=== PATIENT | male | born 1945 | race Caucasian/White ===

== ENCOUNTER 2022-10-05 04:57 | Inpatient (IN) ==
[2022-10-05] MEDS ORDERED: SODIUM CHLORIDE 0.9% 1000ML 500 ML IV ONE (05:14)
[2022-10-05] MEDS ORDERED: LABETALOL HCL IV 5 MG/ML 20ML IV STA (05:14)
[2022-10-05] MEDS ORDERED: METOCLOPRAMIDE HCL INJ 5 MG/ML 2 ML VIAL IV ONE (05:14)
[2022-10-05] MEDS ORDERED: diphenhydrAMINE 50 MG/ML VIAL IV STA (05:14)
--- NOTE | 2022-10-05 05:16 | Emergency Department Note ---
Impression & Plan Acute hyponatremia ADMIT ED Provider Note HPI: The patient is a 77-year-old gentleman who presents the emergency department with multiple complaints. Patient states he was diagnosed with COVID-19 one week ago, states that since then he has continued to have symptoms including some nonspecific chest pressure and coughing, patient states she is also had generalized headaches that have been daily during this time. Patient states he finished a course of Paxlovid 2 days ago. On arrival here to the ED the patient is in no acute distress. Patient does mention to me later in the history that he is also having a sensation of incomplete voiding at times. He states he is able to urinate on his own without complete obstruction. He does not have any focal deficits, he is noted to be hypertensive on arrival 216/109 but is otherwise afebrile and saturating well on room air on my initial assessment. ROS: -General: COVID-19 symptoms -Neuro: Headache x1 week *10 point review systems was conducted and is otherwise negative unless stated above *Outpatient medications and allergy history reviewed PE: General: Alert HEENT: Normocephalic, trachea midline Eyes: Extraocular eye movement is intact, no scleral erythema Pulmonary: Clear to auscultation bilaterally, no wheezing Cardio: Regular rate and rhythm GI: Abdomen is soft, nontender : No suprapubic tenderness MSK: No evidence of trauma or malformation of the extremities, no edema Skin: No evidence of rash Neuro: Alert, no focal deficits, equal bilateral training and development rep strength, symmetrical facial movements are appreciated, no drift of the upper extremities or lower extremities with testing against gravity Psychiatric: Cooperative property assessment monitor: - An order was placed for continuous cardiac monitoring - Patient was noted to be in sinus rhythm with a rate of 80 EKG: Rate: 81 Rhythm: Normal sinus rhythm Intervals: QRS 154 ms, otherwise within normal limits ST changes: No ST elevation Time: 0530 Interventions provided in ED: -IV labetalol, IV fluid bolus, IV Reglan, IV Benadryl Medical Decision Making: Patient presented to the emergency department with concern for ongoing COVID-19 symptoms. He recently finished a course of Paxlovid 2 days ago however he continues to feel unwell. States he has had ongoing headaches, generalized weakness, states he has had a harsh cough. IV was established, lab work obtained, patient was placed on property assessment monitor. CT imaging of the head was ordered. Patient was given a dose of IV labetalol for his hypertension in the setting of headache, this did improve his blood pressure to 180/93 CT imaging of the head does not show any evidence of any acute intracranial process. Chest x-ray shows a mild nonspecific coarsening at the bilateral lung bases. Patient was given IV Reglan and IV Benadryl as well as a small IV fluid bolus for his headache. This did improve his headache. Lab work otherwise shows no leukocytosis, stable hemoglobin, critical electrolyte abnormality of sodium of 115 is noted patient tells me he has not had this issue previously. Unclear source for the patient's hyponatremia at this time, he has vague symptoms of weakness and headache although this may be attributable to his recent COVID-19 diagnosis. Given the critical level of his acute hyponatremia he will require admission for further work-up. Urinalysis was obtained and does not show any evidence of infection. COVID-19 testing was obtained and remains positive. [facility] service was consulted for admission and the patient was admitted in stable condition for further care. Diagnosis: 1. Hyponatremia, acute 2. Hypertensive urgency 3. Headache, acute, non-intractable 4. Hypochloremia 5. COVID-19 infection Disposition: Admission Sherman Vu DO Emergency Medicine Past Med/Surg History Social History Smoking Status: Never smoker Feels Safe at Home: Yes Allergies Allergies Allergy/AdvReac Type Severity Reaction Status Date / Time No Known Allergies Allergy Unverified 05/25/12 17:55 Home Meds Home Medications Medication Instructions Recorded Confirmed Pravastatin (Pravachol ) 20 mg PO DAILY #0 tabs 05/25/12 Results & Data (ED) Vital Signs Vital Signs - 24 hr 10/05/22 05:03 10/05/22 04:58 10/05/22 05:13 Temperature 36.4 C L Temperature Source Temporal Artery Scan Pulse Rate 84 75 Pulse Rate [Apical] 76 Pulse Rate from SpO2 Sensor Pulse Rhythm Regular Pulse Rhythm [Apical] Respiratory Rate 18 16 16 Respiratory Effort / Characteristics Non-Labored Spontaneous Non-Labored Spontaneous Respiratory Depth Normal Normal Respiratory Pattern Blood Pressure 216/109 H Blood Pressure [Right Arm] 221/108 H Blood Pressure Mean 144 Blood Pressure Mean [Right Arm] 145 Blood Pressure Position [Right Arm] Pulse Oximetry 98 96 96 Oxygen Delivery Method Room Air Room Air Room Air Sepsis Recent Fever Within 48 Hours No Sepsis New/Unexplained Change in Mental Status No Sepsis Action Taken by Nursing No Action Required 10/05/22 05:47 10/05/22 06:03 10/05/22 06:12 Temperature Temperature Source Pulse Rate 73 74 78 Pulse Rate [Apical] Pulse Rate from SpO2 Sensor 74 Pulse Rhythm Pulse Rhythm [Apical] Respiratory Rate 18 20 Respiratory Effort / Characteristics Respiratory Depth Respiratory Pattern Blood Pressure 187/117 H 188/107 H 189/107 H Blood Pressure [Right Arm] Blood Pressure Mean 140 134 134 Blood Pressure Mean [Right Arm] Blood Pressure Position [Right Arm] Pulse Oximetry 97 Oxygen Delivery Method Sepsis Recent Fever Within 48 Hours Sepsis New/Unexplained Change in Mental Status Sepsis Action Taken by Nursing 10/05/22 06:30 10/05/22 06:30 10/05/22 07:00 Temperature Temperature Source Pulse Rate 70 Pulse Rate [Apical] 77 Pulse Rate from SpO2 Sensor 67 Pulse Rhythm Pulse Rhythm [Apical] Regular Respiratory Rate 17 17 Respiratory Effort / Characteristics Non-Labored Spontaneous Respiratory Depth Normal Respiratory Pattern Regular Blood Pressure 180/93 H 180/93 H Blood Pressure [Right Arm] 176/97 H Blood Pressure Mean 122 122 Blood Pressure Mean [Right Arm] 123 Blood Pressure Position [Right Arm] Semi-fowlers Pulse Oximetry 98 98 Oxygen Delivery Method Room Air Sepsis Recent Fever Within 48 Hours Sepsis New/Unexplained Change in Mental Status Sepsis Action Taken by Nursing Laboratory Data Result diagrams: 10/05/22 05:27 10/05/22 05:27 Lab Results 10/05/22 10/05/22 10/05/22 Range/Units 05:27 05:27 06:11 WBC 7.41 (4.8-10.8) K/ul RBC 5.35 (4.63-6.08) M/uL Hgb 15.5 (14.0-18.0) g/dl Hct 41.4 (40.1-51.0) % MCV 77.4 L (80.0-100.0) fL MCH 29.0 (25.0-34.0) pg MCHC 37.4 H (32.0-36.0) g/dL RDW Std Deviation 32.3 L (36.4-46.3) fL RDW Coeff of Tamir 11.7 (11.5-14.5) % Plt Count 319 (130-400) K/uL MPV 9.4 (9.4-12.4) fL Immature Gran % (Auto) 0.3 % Neut % (Auto) 69.5 % Lymph % (Auto) 16.3 % Gaines % (Auto) 12.7 % Eos % (Auto) 0.8 % Baso % (Auto) 0.4 % Neut # (Auto) 5.15 (1.4-6.5) K/uL Lymph # (Auto) 1.21 (1.2-3.4) K/uL Gaines # (Auto) 0.94 H (0.24-0.82) K/uL Eos # (Auto) 0.06 (0-0.50) K/uL Baso # (Auto) 0.03 (0-0.2) K/uL Immature Gran # (Auto) 0.02 (0.00-0.02) K/uL Sodium 115 L* (136-145) mmol/L Potassium 4.0 (3.5-5.1) mmol/L Chloride 81 L (98-107) mmol/L Carbon Dioxide 25 (21-32) mmol/L Anion Gap 9 (3-11) BUN 7 (6-23) mg/dl Creatinine 0.66 (0.6-1.4) mg/dl Est Cr Clr Drug Dosing 108.8 ml/min Est GFR ( Amer) 108.8 ml/min Est GFR (Non-Af Amer) 93.9 ml/min BUN/Creatinine Ratio 10.6 (10-20) Glucose 150 H (70-99(Fasting)) mg/dl Calcium 9.2 (8.5-10.1) mg/dl Total Bilirubin 0.6 (0.2-1.0) mg/dl AST 17 (13-39) U/L ALT 12 (7-52) U/L Alkaline Phosphatase 62 (34-104) U/L Troponin I High Sens 10.9 (0-20) pg/ml Total Protein 8.1 (6.0-8.3) gm/dl Albumin 4.5 (3.4-5.0) gm/dl Globulin 3.6 (2.5-4.0) gm/dl Albumin/Globulin Ratio 1.3 (0.9-2) Lipase 21 (11-82) U/L Urine Color Yellow Urine Appearance Clear (Clear) Urine pH 7.5 (4.5-7.5) Ur Specific Norton 1.013 (1.000-1.030) Urine Protein 1+ H (Negative) Urine Glucose (UA) Negative (Negative) Urine Ketones Trace H (Negative) Urine Blood Negative (Negative) Urine Nitrite Negative (Negative) Urine Bilirubin Negative (Negative) Urine Urobilinogen Negative (Negative) Ur Leukocyte Esterase Negative (Negative) Urine WBC (Auto) 1-5 (0-5) /hpf Urine RBC (Auto) 0-4 (0-4) /hpf U Hyaline Cast (Auto) 0 (0-5) /lpf U Epithel Cells (Auto) 10-20 H (0-5) /lpf Urine Bacteria (Auto) Negative (Negative) SARS-CoV-2, RNA, NAAT (NEGATIVE) 10/05/22 Range/Units 06:55 WBC (4.8-10.8) K/ul RBC (4.63-6.08) M/uL Hgb (14.0-18.0) g/dl Hct (40.1-51.0) % MCV (80.0-100.0) fL MCH (25.0-34.0) pg MCHC (32.0-36.0) g/dL RDW Std Deviation (36.4-46.3) fL RDW Coeff of Tamir (11.5-14.5) % Plt Count (130-400) K/uL MPV (9.4-12.4) fL Immature Gran % (Auto) % Neut % (Auto) % Lymph % (Auto) % Gaines % (Auto) % Eos % (Auto) % Baso % (Auto) % Neut # (Auto) (1.4-6.5) K/uL Lymph # (Auto) (1.2-3.4) K/uL Gaines # (Auto) (0.24-0.82) K/uL Eos # (Auto) (0-0.50) K/uL Baso # (Auto) (0-0.2) K/uL Immature Gran # (Auto) (0.00-0.02) K/uL Sodium (136-145) mmol/L Potassium (3.5-5.1) mmol/L Chloride (98-107) mmol/L Carbon Dioxide (21-32) mmol/L Anion Gap (3-11) BUN (6-23) mg/dl Creatinine (0.6-1.4) mg/dl Est Cr Clr Drug Dosing ml/min Est GFR ( Amer) ml/min Est GFR (Non-Af Amer) ml/min BUN/Creatinine Ratio (10-20) Glucose (70-99(Fasting)) mg/dl Calcium (8.5-10.1) mg/dl Total Bilirubin (0.2-1.0) mg/dl AST (13-39) U/L ALT (7-52) U/L Alkaline Phosphatase (34-104) U/L Troponin I High Sens (0-20) pg/ml Total Protein (6.0-8.3) gm/dl Albumin (3.4-5.0) gm/dl Globulin (2.5-4.0) gm/dl Albumin/Globulin Ratio (0.9-2) Lipase (11-82) U/L Urine Color Urine Appearance (Clear) Urine pH (4.5-7.5) Ur Specific Norton (1.000-1.030) Urine Protein (Negative) Urine Glucose (UA) (Negative) Urine Ketones (Negative) Urine Blood (Negative) Urine Nitrite (Negative) Urine Bilirubin (Negative) Urine Urobilinogen (Negative) Ur Leukocyte Esterase (Negative) Urine WBC (Auto) (0-5) /hpf Urine RBC (Auto) (0-4) /hpf U Hyaline Cast (Auto) (0-5) /lpf U Epithel Cells (Auto) (0-5) /lpf Urine Bacteria (Auto) (Negative) SARS-CoV-2, RNA, NAAT POSITIVE A* (NEGATIVE) Administered Medications Discontinued Medications Diphenhydramine HCl (Diphenhydramine 50 Mg/Ml Vial) 25 mg IV NOW STA Stop: 10/05/22 05:15 Last Admin: 10/05/22 05:30 Dose: 25 mg Documented By: ROBYN Sodium Chloride (Nss 1000ml) 500 mls @ 999 mls/hr IV .Q31M ONE Stop: 10/05/22 05:44 Last Infusion: 10/05/22 06:03 Dose: 0 mls/hr Documented By: Admin: 10/05/22 05:37 Dose: 999 mls/hr Documented By: ROBYN Labetalol HCl (Labetalol Hcl Iv 5 Mg/Ml 20ml) 10 mg IV NOW STA Stop: 10/05/22 05:15 Last Admin: 10/05/22 05:30 Dose: 10 mg Documented By: ROBYN Co-signed By: SHANE Metoclopramide HCl (Metoclopramide Hcl Inj 5 Mg/Ml 2 Ml Vial) 5 mg IV ONE ONE Stop: 10/05/22 05:15 Last Admin: 10/05/22 05:31 Dose: 5 mg Documented By: ROBYN Imaging Data Radiologist's Impression: Chest X-Ray 10/05/22 05:13 XR chest 1V portable HISTORY: 77 years-old Male Chest pain, nonspecific acute chest pain COMPARISON: None TECHNIQUE: AP view of the chest FINDINGS: Study is limited secondary to positioning. The cardiac silhouette is upper limits of normal in size. Mild interstitial coarsening of the lung bases. No pneumothorax, pleural effusion, airspace consolidation or overt pulmonary edema. Mild left shoulder rotator cuff calcific tendinosis. Degenerative changes of the shoulders and spine. IMPRESSION: Mild nonspecific interstitial coarsening of the lung bases. Findings may represent atelectasis versus a mild nonspecific pneumonitis ACT 112: Negative or not required by law. The above report was generated using voice recognition software. It may contain grammatical, syntax or spelling errors. Electronically signed by: Rajesh Ragland M.D. 10/05/2022 6:[address] 10/05/22 05:13 CT head/brain wo con CLINICAL HISTORY: 77 years-old Male with FINCH. Acute headache TECHNIQUE: Multiple axial CT images of the head were obtained without contrast. A dose lowering technique was utilized adhering to the principles of ALARA. CT DOSE: 704.87 mGy.cm COMPARISON: None. FINDINGS: No acute intracranial hemorrhage, midline shift, intracranial mass, hydrocephalus, territorial ischemia or abnormal extra-axial collection. Involutional changes with ventriculomegaly, likely on an ex vacuo basis. There is asymmetric dilation of the posterior horn left lateral ventricle of unknown chronicity. The temporal horns are symmetric and decompressed. White matter hypodensities are suggestive of chronic microvascular ischemic disease. Cerebral vascular calcifications. The calvarium is intact. Mild mucosal thickening of the paranasal sinuses. The mastoid air cells are generally clear. Unremarkable soft tissues. Prior bilateral lens repair. IMPRESSION: No acute intracranial abnormality. ACT 112: Negative or not required by law. The above report was generated using voice recognition software. It may contain grammatical, syntax or spelling errors. Electronically signed by: Rajesh Ragland M.D. 10/05/2022 6:56 AM Discharge Plan Visit Data Chief Complaint: Illness Stated Complaint: COVID ED Provider: Sherman Vu Discharge Problem: Acute hyponatremia Patient Disposition: Admitted As Inpatient Forms Stand Alone Forms: [facility] Prescriptions Prescriptions: No Action Pravastatin (Pravachol ) 20 MG tablet 20 mg PO DAILY Qty: 0 Referrals Referrals: PCP,NO [Physician] -
[2022-10-05 06:06] LABS: Basophils # (auto) 0.03 K/uL (0-0.2); Basophils % (auto) 0.4 %; Eosinophils # (auto) 0.06 K/uL (0-0.50); Eosinophils % (auto) 0.8 %; Hematocrit (blood only) 41.4 % (40.1-51.0); Hemoglobin 15.5 g/dl (14.0-18.0); Immature Granulocytes # (auto) 0.02 K/uL (0.00-0.02); Immature Granulocytes % (auto) 0.3 %; Lymphocytes # (auto) 1.21 K/uL (1.2-3.4); Lymphocytes % (auto) 16.3 %; Mean Corpuscular Hgb Conc 37.4 g/dL (32.0-36.0); Mean Corpuscular Volume 77.4 fL (80.0-100.0); Mean Platelet Volume 9.4 fL (9.4-12.4); Monocytes # (auto) 0.94 K/uL (0.24-0.82); Monocytes % (auto) 12.7 %; Neutrophils # (auto) 5.15 K/uL (1.4-6.5); Neutrophils % (auto) 69.5 %; Platelet Count 319 K/uL (130-400); RDW Coefficient of Variation 11.7 % (11.5-14.5); RDW Standard Deviation 32.3 fL (36.4-46.3); Red Blood Count 5.35 M/uL (4.63-6.08); White Blood Count 7.41 K/ul (4.8-10.8)
[2022-10-05 06:35] LABS: Troponin I High Sensitivity 10.9 pg/ml (0-20)
[2022-10-05 06:42] LABS: Albumin Globulin Ratio 1.3 (0.9-2); Albumin Level 4.5 gm/dl (3.4-5.0); BUN Creatinine Ratio 10.6 (10-20); Bilirubin,Total 0.6 mg/dl (0.2-1.0); Calcium 9.2 mg/dl (8.5-10.1); Creatinine Clr Calc Pharmacy 108.8 ml/min; Est GFR (African American) 108.8 ml/min; Est GFR (Non-African American) 93.9 ml/min; Globulin 3.6 gm/dl (2.5-4.0); Total Protein 8.1 gm/dl (6.0-8.3)
--- NOTE | 2022-10-05 06:43 | XRay Report ---
XR chest 1V portable HISTORY: 77 years-old Male Chest pain, nonspecific acute chest pain COMPARISON: None TECHNIQUE: AP view of the chest FINDINGS: Study is limited secondary to positioning. The cardiac silhouette is upper limits of normal in size. Mild interstitial coarsening of the lung bases. No pneumothorax, pleural effusion, airspace consolida tion or overt pulmonary edema. Mild left shoulder rotator cuff calcific tendinosis. Degenerative dudley ges of the shoulders and spine. IMPRESSION: Mild nonspecific interstitial coarsening of the lung bases. Findings may represent atelec tasis versus a mild nonspecific pneumonitis ACT 112: Negative or not required by law. The above report was generated using voice recognition software. It may contain grammatical, syntax o r spelling errors. Electronically signed by: Rajesh Ragland M.D. 10/05/2022 6:41 AM
--- NOTE | 2022-10-05 06:58 | CT Scan Report ---
CT head/brain wo con CLINICAL HISTORY: 77 years-old Male with FINCH. Acute headache TECHNIQUE: Multiple axial CT images of the head were obtained without contrast. A dose lowering tech nique was utilized adhering to the principles of ALARA. CT DOSE: 704.87 mGy.cm COMPARISON: None. FINDINGS: No acute intracranial hemorrhage, midline shift, intracranial mass, hydrocephalus, territorial ischem ia or abnormal extra-axial collection. Involutional changes with ventriculomegaly, likely on an ex va cuo basis. There is asymmetric dilation of the posterior horn left lateral ventricle of unknown chron icity. The temporal horns are symmetric and decompressed. White matter hypodensities are suggestive o f chronic microvascular ischemic disease. Cerebral vascular calcifications. The calvarium is intact. Mild mucosal thickening of the paranasal sinuses. The mastoid air cells are generally clear. Unremarkable soft tissues. Prior bilateral lens repair. IMPRESSION: No acute intracranial abnormality. ACT 112: Negative or not required by law. The above report was generated using voice recognition software. It may contain grammatical, syntax o r spelling errors. Electronically signed by: Rajesh Ragland M.D. 10/05/2022 6:56 AM
[2022-10-05 07:14] LABS: Appearance Urine Clear (Clear); Bacteria Urine Automated Negative (Negative); Bilirubin Urine Negative (Negative); Blood Urine Negative (Negative); Cast Urine Automated 0 /lpf (0-5); Color Urine Yellow; Glucose Urine UA Negative (Negative); Ketones Urine Trace (Negative); Leukocyte Esterase Urine Negative (Negative); Nitrite Urine Negative (Negative); RBC Urine Automated 0-4 /hpf (0-4); Specific Gravity Urine 1.013 (1.000-1.030); Urobilinogen Urine Negative (Negative); pH Urine 7.5 (4.5-7.5)
[2022-10-05 07:18] LABS: Protein Urine 1+ (Negative)
--- NOTE | 2022-10-05 08:50 | History & Physical Report ---
Date of Service October 05, 2022 Assessment & Plan (1) Acute hyponatremia: Plan: This is a 77yo M with a PMH of HTN and HLD who presents with intermittent nausea, vomiting and cough was found to have hyponatremia. Dx with COVID 1 week ago and completed Paxlovid course 2 days ago Ongoing intermittent nausea and vomiting, poor appetite and mental "fogginess" per A&O x4, denies seizures Initial sodium of 115 with serum osm, urine osm, urine sodium pending Received 500ml NSS in ED Will trend BMP every 4 hours TSH and procalcitonin pending Discussed case with Dr. Woods of nephrology who will evaluate Discussed with Dr. Pedersen, who accepts for ICU (2) COVID-19: Plan: Symptomatic for 10 days, completed course of Paxil did 2 days ago. Flutter valve, incentive spirometry, Mucinex twice daily. Saturating at 99% on room air (3) HTN (hypertension): Plan: BP elevated at 178/92. Given 10 mg IV labetalol in ED, just given missed a.m. dose of losartan. Continue to monitor (4) HLD (hyperlipidemia): Plan: Continue statin DVT Ppx: SQ lovenox Code status: FULL PCP: Rai Dispo: Admitted to ICU Patient seen in collaboration with Dr. Carrion. Please see addendum. History of Present Illness Chief Complaint: N/V, confusion Primary Care Provider: Davon Atwood MD This is a 77yo M with a PMH of HTN and HLD who presents with intermittent nausea, vomiting and cough. Was traveling in [place] 10 days ago and developed productive cough, subjective fever chills. He was diagnosed with COVID when he returned to the [facility] 1 week ago and was prescribed a 5 day course of Paxlovid, which he completed 2 days ago. Cough has persisted but is now dry. Has had nausea and vomiting intermittently since return home. Has had intermittent headaches. Appetite has been poor for past 10 days. Has been drinking approximately 50 oz of water a day. No diarrhea. Patient denies confusion or seizures. mentions that patient has seemed more confused and foggy the past few days. A&Ox4 during interview. Denies lightheadedness, chest pain, palpitations, abdominal pain, dysuria, diarrhea or constipation. Allergies Allergy/AdvReac Type Severity Reaction Status Date / Time No Known Allergies Allergy Unverified 05/25/12 17:55 Home Medications Medication Instructions Recorded Confirmed Type atorvastatin 40 mg tablet 40 mg PO DAILY 10/05/22 10/05/22 History losartan 50 mg tablet 50 mg PO DAILY 10/05/22 10/05/22 History Past Med/Surg History Medical History HLD (hyperlipidemia) HTN (hypertension) Surgical History H/O hernia repair Family History Other Colorectal cancer Heart disease Social History Smoking Status: Former smoker Second Hand Exposure: No; Do You Dip or Chew Tobacco: No; Tobacco Cessation Education Requested by Patient: No Hx Alcohol Use: Yes Alcohol type: wine Alcohol Intake Frequency: Monthly or Less Hx Substance Use: No Preferred Language: Croatian Communication Ability: Effective Manual Tester Required: No Beliefs That Will Affect Care: None Current Living Situation: Spouse Other Information That Helps Us Care for You: No Feels Safe at Home: Yes Safety Concerns: Feels Safe At This Time Assistive Devices: None Review of Systems Review of Systems: At least ten systems reviewed and negative except as noted in the HPI. Physical Exam Physical Exam: Please see Dr. Carrion's addendum for physical exam. Results & Data Results & Data ([facility]) Vital Signs (Past 12 Hours) Vital Signs Temp Pulse Pulse Resp BP BP BP 10/05/22 08:08 75 18 186/99 H 10/05/22 07:49 36.8 C 10/05/22 07:00 77 17 176/97 H 10/05/22 06:30 70 17 180/93 H 10/05/22 06:30 180/93 H 10/05/22 06:12 78 189/107 H 10/05/22 06:03 74 20 188/107 H 10/05/22 05:47 73 18 187/117 H 10/05/22 05:13 75 16 10/05/22 04:58 76 16 221/108 H 10/05/22 05:03 36.4 C L 84 18 216/109 H Pulse Ox O2 Del Method 10/05/22 08:08 97 Room Air 10/05/22 07:49 10/05/22 07:00 98 Room Air 10/05/22 06:30 98 10/05/22 06:30 10/05/22 06:12 10/05/22 06:03 97 10/05/22 05:47 10/05/22 05:13 96 Room Air 10/05/22 04:58 96 Room Air 10/05/22 05:03 98 Room Air Laboratory Results Short CBC 10/05/22 Range/Units 05:27 WBC 7.41 (4.8-10.8) K/ul Hgb 15.5 (14.0-18.0) g/dl Hct 41.4 (40.1-51.0) % Plt Count 319 (130-400) K/uL BMP 10/05/22 05:27 Sodium 115 L* Potassium 4.0 Chloride 81 L Carbon Dioxide 25 BUN 7 Creatinine 0.66 Glucose 150 H Calcium 9.2 Liver Function 10/05/22 Range/Units 05:27 Total Bilirubin 0.6 (0.2-1.0) mg/dl AST 17 (13-39) U/L ALT 12 (7-52) U/L Alkaline Phosphatase 62 (34-104) U/L Albumin 4.5 (3.4-5.0) gm/dl Urine 10/05/22 Range/Units 06:11 Urine Color Yellow Urine Appearance Clear (Clear) Urine pH 7.5 (4.5-7.5) Ur Specific [place] 1.013 (1.000-1.030) Urine Protein 1+ H (Negative) Urine Glucose (UA) Negative (Negative) Diagnostic Findings Chest X-Ray 10/05/22 05:13 XR chest 1V portable HISTORY: 77 years-old Male Chest pain, nonspecific acute chest pain COMPARISON: None TECHNIQUE: AP view of the chest FINDINGS: Study is limited secondary to positioning. The cardiac silhouette is upper limits of normal in size. Mild interstitial coarsening of the lung bases. No pneumothorax, pleural effusion, airspace consolidation or overt pulmonary edema. Mild left shoulder rotator cuff calcific tendinosis. Degenerative changes of the shoulders and spine. IMPRESSION: Mild nonspecific interstitial coarsening of the lung bases. Findings may represent atelectasis versus a mild nonspecific pneumonitis ACT 112: Negative or not required by law. The above report was generated using voice recognition software. It may contain grammatical, syntax or spelling errors. Electronically signed by: Rajesh Ragland M.D. 10/05/2022 6:[address] 10/05/22 05:13 CT head/brain wo con CLINICAL HISTORY: 77 years-old Male with FINCH. Acute headache TECHNIQUE: Multiple axial CT images of the head were obtained without contrast. A dose lowering technique was utilized adhering to the principles of ALARA. CT DOSE: 704.87 mGy.cm COMPARISON: None. FINDINGS: No acute intracranial hemorrhage, midline shift, intracranial mass, hydrocephalus, territorial ischemia or abnormal extra-axial collection. Involutional changes with ventriculomegaly, likely on an ex vacuo basis. There is asymmetric dilation of the posterior horn left lateral ventricle of unknown chronicity. The temporal horns are symmetric and decompressed. White matter hypodensities are suggestive of chronic microvascular ischemic disease. Cerebral vascular calcifications. The calvarium is intact. Mild mucosal thickening of the paranasal sinuses. The mastoid air cells are generally clear. Unremarkable soft tissues. Prior bilateral lens repair. IMPRESSION: No acute intracranial abnormality. ACT 112: Negative or not required by law. The above report was generated using voice recognition software. It may contain grammatical, syntax or spelling errors. Electronically signed by: Rajesh Ragland M.D. 10/05/2022 6:56 AM Supervising Physician Co-Signing Physician Notes Patient is a 77-year-old male with history of hypertension, hyperlipidemia and no other significant past medical history presents with history of nausea, vomiting, cough with brownish expectoration since about 7 days duration. He re cently traveled to [place] 10 days ago. He admits to having fever, chills initially which currently resolved. He was diagnosed to have COVID 1 week ago and has completed a course of Paxlovid. Patient's family noted him to be having intermittent confusion. Please review HPI for complete details of presentation. Blood work reviewed. Noted hyponatremia 115, hypochloremia 81, glucose 150, HbA1c 6.1, CRP 1.8, procalcitonin normal. Saturating well on room air. No known seizure-like activity. Oriented during my encounter. Physical Exam: Vitals signs as noted above General Appearance:Moderately built and nourished, no apparent distress Head: normocephalic, Atraumatic Eyes: normal inspection, EOMI Neck: supple, Trachea midline Respiratory/Chest: Decreased breath sounds, CTA, No accessory muscle use Cardiovascular: S1, S2, No murmur Abdomen/GI:Soft, Non tender, Bowel sounds present Extremities/Musculoskeletal:normal inspection, 1+ B/L LE edema Neurologic/Psych:AAOX3, grossly no focal neurological deficits Skin: normal color, warm Acute hyponatremia Likely prerenal secondary to dehydration Will obtain urine, serum osmolality, urine sodium TSH normal Received 5 mg normal saline in ED Closely monitor BMP every 4 hours Consider hypertonic saline Batteryman, account executive ag[employer] consulted Monitor for any seizures COVID-19 infection Recently finished Paxlovid course Saturating well on room air Conservative management for now Hypertensive urgency Continue losartan May need IV antihypertensives if BP remains elevated. I personally reviewed the record. Patient is interviewed and examined at bedside. Patient's care is coordinated with Park Kilpatrick PA-C. Please refer to the documentation above for details of patient's presentation and for discussion of other issues.
--- NOTE | 2022-10-05 09:04 | Electrocardiogram Report ---
Test Reason : Blood Pressure : / mmHG Vent. Rate : 081 BPM Atrial Rate : 081 BPM P-R Int : 180 ms QRS Dur : 154 ms QT Int : 412 ms P-R-T Axes : 052 019 026 degrees QTc Int : 478 ms Normal sinus rhythm Right bundle branch block Abnormal ECG No previous ECGs available Confirmed by Kenneth Louis ([id number]) on 10/05/2022 9:04:21 AM Referred By: REFERRED SELF Confirmed By:Kenneth Louis
[2022-10-05] MEDS ORDERED: ACETAMINOPHEN 500 MG TAB PO STA (09:27)
[2022-10-05] MEDS ORDERED: ONDANSETRON INJ 2 MG/ML 2 ML VIAL IV STA (09:27)
[2022-10-05] MEDS ORDERED: LOSARTAN POTASSIUM 50 MG TAB PO ONE ×3 (09:28→18:12)
[2022-10-05 10:09] LABS: Estimated Average Glucose 128 mg/dl; Hemoglobin A1C 6.1 % (4.5-5.6)
[2022-10-05] MEDS: guaiFENesin 600 MG TABCR PO SCH ×2 (10:34→20:01)
[2022-10-05 11:28] LABS: BUN Creatinine Ratio 10.8 (10-20); Calcium 9.2 mg/dl (8.5-10.1); Creatinine Clr Calc Pharmacy 110.4 ml/min; Est GFR (African American) 109.5 ml/min; Est GFR (Non-African American) 94.5 ml/min; Potassium 4.1 mmol/L (3.5-5.1)
[2022-10-05] MEDS ORDERED: ALBUT/IPRATROP 3MG/0.5MG NEB 3 ML VIAL NEB PRN (11:30)
[2022-10-05] MEDS: ICU Protocol for HYPERglycemia SCH ×3 (13:40→20:07)
[2022-10-05] MEDS: ENOXAPARIN INJ 40 MG/0.4 ML SYR SQ SCH (13:45)
--- NOTE | 2022-10-05 14:46 | Nephrology Consultation ---
Date of Consultation October 05, 2022 Assessment & Plan (1) Hyponatremia: euvolemic hypotonic hyponatremia likely multifactorial ; favor this rather than hypovolemic state >> low solute diet +/- lung issues from covid infection -fluid restrict 1.2L/day -responded to 500 mL NS w/ slight change but urine /serum studies/hx most c/w euvolemia -repeat labs pending >> low threshold for 3% until sNa 120 versus lasix -q4h BMP STAT -maintain eukalemia -goal sNa is 121 for tomorrow AM (2) HTN (hypertension): some situational HTN. continue losartan OP dose; had prn labetalol -avoid thiazides -continue prn labetalol and consideration of hydralazine prn History of Present Illness Reason for Consultation: hyponatremia Requesting Physician: Dr Carrion Attending Physician: Papo Carrion MD History of Present Illness 77 y/o M whom I'm asked to see for hyponatremia was admitted today for same. PMH includes HTN, HL, and recent covid infection. He returned from a photography trip to [place] about 10 days back. 2 fellow travellers developed covid on the trip; the pt tested positive for it on return and is s/p course of paxlovid. during covid, he had fevers, dry cough and n/v. he lost his sense of taste. he had severe frontal sinus pain. he took a few ibuprofen 2 days back but stopped/limited intake b/c worsened GI upset. His fevers stopped but pt has had ongoing n/v, poor po intake (though he's kept up with water intake), also w/ ongoing sinus congestion and N/v. His cough has mostly resolved. he has congestion but no edema. also noting urinary hesitancy. no falls but endorses a staggering gait. his told admitting team his thought process is foggy. Allergies Allergy/AdvReac Type Severity Reaction Status Date / Time No Known Allergies Allergy Unverified 05/25/12 17:55 Home Medications Medication Instructions Recorded Confirmed Type atorvastatin 40 mg tablet 40 mg PO DAILY 10/05/22 10/05/22 History losartan 50 mg tablet 50 mg PO DAILY 10/05/22 10/05/22 History Patient History Medical History HLD (hyperlipidemia) HTN (hypertension) Surgical History H/O hernia repair Family History Other Colorectal cancer Heart disease Social History Smoking Status: Former smoker Second Hand Exposure: No; Do You Dip or Chew Tobacco: No; Tobacco Cessation Education Requested by Patient: No Hx Alcohol Use: Yes Alcohol type: wine Alcohol Intake Frequency: Monthly or Less Hx Substance Use: No Preferred Language: Nepali Communication Ability: Effective Computer Aided Design Technician Required: No Beliefs That Will Affect Care: None Current Living Situation: Spouse Other Information That Helps Us Care for You: No Feels Safe at Home: Yes Safety Concerns: Feels Safe At This Time Assistive Devices: None Review of Systems Review of Systems: All systems reviewed & are unremarkable except as noted in HPI & below Physical Exam Constitutional: well developed, well nourished, average body habitus and cooperative; no acute distress Eyes: EOM intact bilaterally ENMT: Ears: no external ear abnormality Nose: no external nose abnormality Mouth: + dry oral mucous membranes Neck: no nuchal rigidity Respiratory: normal respiratory effort Auscultation: + diminished lung sounds and + crackles (a few scattered fine crackles) Cardiovascular: Rate/Rhythm: regular rate and regular rhythm Extremities: no edema Gastrointestinal (Abdomen): Inspection/Auscultation: normal bowel sounds Percussion/Palpation: abdomen soft; abdomen nontender Musculoskeletal: Extremities: strength 5/5 throughout Skin: no rashes, warm and dry Neurologic: kothari, fluent speech, no tremor Psychiatric: Orientation: alert and oriented x 3 Speech: normal rate/rhythm/volume of speech Insight: good insight Judgement: good judgement Results & Data ([facility]) Vital Signs (Past 12 Hours) Vital Signs Temp Pulse Pulse Resp BP BP BP 10/05/22 14:00 81 16 10/05/22 14:00 188/103 H 10/05/22 13:30 195/100 H 10/05/22 13:30 80 13 10/05/22 13:00 86 20 10/05/22 13:00 187/102 H 10/05/22 12:30 78 18 10/05/22 12:30 193/100 H 10/05/22 12:00 78 16 10/05/22 12:00 193/97 H 10/05/22 11:30 81 15 10/05/22 11:30 190/98 H 10/05/22 14:18 10/05/22 12:00 37.0 C 10/05/22 12:10 37.0 C 76 16 190/98 H 10/05/22 10:58 73 18 183/105 H 10/05/22 10:33 77 18 183/105 H 10/05/22 09:30 69 18 174/115 H 10/05/22 08:48 83 18 178/92 H 10/05/22 08:08 75 18 186/99 H 10/05/22 07:49 36.8 C 10/05/22 07:00 77 17 176/97 H 10/05/22 06:30 70 17 180/93 H 10/05/22 06:30 180/93 H 10/05/22 06:12 78 189/107 H 10/05/22 06:03 74 20 188/107 H 10/05/22 05:47 73 18 187/117 H 10/05/22 05:13 75 16 10/05/22 04:58 76 16 221/108 H 10/05/22 05:03 36.4 C L 84 18 216/109 H Pulse Ox O2 Del Method 10/05/22 14:00 98 10/05/22 14:00 10/05/22 13:30 10/05/22 13:30 97 10/05/22 13:00 94 10/05/22 13:00 10/05/22 12:30 98 10/05/22 12:30 10/05/22 12:00 98 10/05/22 12:00 10/05/22 11:30 98 10/05/22 11:30 10/05/22 14:18 Room Air 10/05/22 12:00 10/05/22 12:10 98 Room Air 10/05/22 10:58 98 Room Air 10/05/22 10:33 98 Room Air 10/05/22 09:30 95 Room Air 10/05/22 08:48 99 Room Air 10/05/22 08:08 97 Room Air 10/05/22 07:49 10/05/22 07:00 98 Room Air 10/05/22 06:30 98 10/05/22 06:30 10/05/22 06:12 10/05/22 06:03 97 10/05/22 05:47 10/05/22 05:13 96 Room Air 10/05/22 04:58 96 Room Air 10/05/22 05:03 98 Room Air Laboratory Results 10/05/22 05:27 Na 115 > 116 K 4 sOsm 246 uOsm 421 Zunilda 87 UACM reviewed
[2022-10-05] MEDS ORDERED: METOPROLOL TARTRATE 1 MG/ML VIAL IV ONE ×2 (14:57→14:59)
[2022-10-05 15:17] LABS: BUN Creatinine Ratio 10.8 (10-20); Calcium 9.2 mg/dl (8.5-10.1); Creatinine Clr Calc Pharmacy 109.7 ml/min; Est GFR (African American) 109.5 ml/min; Est GFR (Non-African American) 94.5 ml/min; Potassium 4.2 mmol/L (3.5-5.1)
[2022-10-05] MEDS ORDERED: ONDANSETRON INJ 2 MG/ML 2 ML VIAL ONE (15:22)
[2022-10-05] MEDS ORDERED: STAT IV STA ×3 (16:00→22:10)
[2022-10-05] MEDS ORDERED: SODIUM CHLORIDE 3 % 150 ML IV ONE ×2 (16:00→19:15)
--- NOTE | 2022-10-05 17:06 | Critical Care Consultation ---
Date of Consultation October 05, 2022 Assessment & Plan (1) Hyponatremia: ICU Assessment and Plans Reason Critically Ill: 77yo Male with PMH HTN HLD came to hospital for COVID related congestion and was admitted for severe hyponatremia. Neuro - [facility] ICU: NEGATIVE Sedation: none Analgesia: none -CT head: No acute intracranial abnormality. Cardiac - HTN -on admit 221/108 -on losartan 50mg daily missed last 2 doses - nephrology consulted continue losartan 50mg may use PRN labetalol avoid thiazides target BP 150-160 HLD -continue atorvastatin Respiratory - no acute concerns GI - Fluid restriction 1.2 L Full Liquid diet RENAL/LYTES - Hyponatremia -Na 115 on admit -euvolemic hypotonic hyponatremia likely multifactorial -received 500ml NSS in ED -nephrology consulted started hypertonic saline, aim for Na 119-120 range q4h BMP avoid salt tabs, urea, thiazide consider lasix - No concerns at this time. ENDO - Prediabetes -A1c 6.1, f/u with PCP HEME - Stable H&H. ID - COVID -ongoing 1 week no fevers currently -isolation precautions -ordered mucinex INTEGUMENTARY - skin clean dry intact LINES/IV ACCESS - PIVs intact. DVT PROPHYLAXIS - Lovenox Thank you for allowing us to be part of this patient's care. Please refer to Dr. Pedersen's documentation for any further recommendations. (2) COVID-19: (3) HLD (hyperlipidemia): (4) HTN (hypertension): Supervising Physician Co-Signing Physician Notes Dr. Parish BUI was resident physician during care of patient. I separately evaluated patient for connors portions of the history and the exam. I was present during the critical portion of medical decision making, and I discussed the case with the resident. I generally agree with the findings and plan. Patient's hyponatremia slowly improving, started on 3% continue close observation. Patient is alert and oriented. Discussed with patient and diagnosis need for treatment and probable course. I have personally spent 40 minutes of critical care time in the direct management of this patient. This is a life/limb threatening event. This includes time spent evaluating patient, direct bedside care, chart review, placing orders, interpretation of diagnostic studies, discussion with consultants, patient, and/or family members regarding treatment decisions, as well as other required patient management activities. This time is exclusive of all separately billable procedures, and teaching time and separate from and in addition to any other critical care service time. History of Present Illness Reason for Consultation: Hyponatremia Requesting Physician: Dr. Pedersen Attending Physician: Papo Carrion MD History of Present Illness 77yo Male with PMH HTN HLD came to hospital for COVID related congestion and was admitted for severe hyponatremia. Patient states over the past week he had COVID, developed congestion sore throat headache mild balance issues and cough. He states his sore throat made it difficult to swallow food sometimes. He denies weakness change in vision SOB or change in appetite. Per his mentation and thought process is not quite at baseline. Patient states he last saw his PCP 6 months ago, BP at that time around systolic 140's. He is on losartan, usually takes regularly however missed his doses the last 2 days. Allergies Allergy/AdvReac Type Severity Reaction Status Date / Time No Known Allergies Allergy Unverified 05/25/12 17:55 Home Medications Medication Instructions Recorded Confirmed Type atorvastatin 40 mg tablet 40 mg PO DAILY 10/05/22 10/05/22 History losartan 50 mg tablet 50 mg PO DAILY 10/05/22 10/05/22 History Patient History Medical History HLD (hyperlipidemia) HTN (hypertension) Surgical History H/O hernia repair Family History Other Colorectal cancer Heart disease Social History Smoking Status: Former smoker Second Hand Exposure: No; Do You Dip or Chew Tobacco: No; Tobacco Cessation Education Requested by Patient: No Hx Alcohol Use: Yes Alcohol type: wine Alcohol Intake Frequency: Monthly or Less Hx Substance Use: No Preferred Language: Moldovan Communication Ability: Effective Medical Payment Poster Required: No Beliefs That Will Affect Care: None Current Living Situation: Spouse Other Information That Helps Us Care for You: No Feels Safe at Home: Yes Safety Concerns: Feels Safe At This Time Assistive Devices: None Review of Systems Review of Systems: All systems reviewed & are unremarkable except as noted in HPI & below Physical Exam Constitutional: well developed, well nourished, cooperative and comfortable Eyes: PERRL, conjunctivae normal, anicteric sclerae ENMT: external ear and nose normal, oropharynx normal Neck: trachea midline, no thyromegaly Respiratory: normal respiratory effort, lungs clear to auscultation Cardiovascular: Rate/Rhythm: regular rate and regular rhythm Extremities: no edema Gastrointestinal (Abdomen): Inspection/Auscultation: abdomen normal to inspection Percussion/Palpation: abdomen soft; abdomen nontender Musculoskeletal: Extremities: strength 5/5 throughout Skin: no rashes, warm and dry Neurologic: CN's II-XI intact bilaterally and awake Coordination: normal [id number] test, normal Romberg test and normal rapid alternating movements Results & Data Results & Data ([facility]) Vital Signs (Past 12 Hours) Vital Signs Temp Pulse Pulse Resp BP BP BP 10/05/22 16:00 75 10/05/22 14:00 81 16 10/05/22 14:00 188/103 H 10/05/22 13:30 195/100 H 10/05/22 13:30 80 13 10/05/22 13:00 86 20 10/05/22 13:00 187/102 H 10/05/22 12:30 78 18 10/05/22 12:30 193/100 H 10/05/22 12:00 78 16 10/05/22 12:00 193/97 H 10/05/22 11:30 81 15 10/05/22 11:30 190/98 H 10/05/22 14:18 10/05/22 14:59 76 203/103 H 10/05/22 12:00 37.0 C 10/05/22 12:10 37.0 C 76 16 190/98 H 10/05/22 10:58 73 18 183/105 H 10/05/22 10:33 77 18 183/105 H 10/05/22 09:30 69 18 174/115 H 10/05/22 08:48 83 18 178/92 H 10/05/22 08:08 75 18 186/99 H 10/05/22 07:49 36.8 C 10/05/22 07:00 77 17 176/97 H 10/05/22 06:30 70 17 180/93 H 10/05/22 06:30 180/93 H 10/05/22 06:12 78 189/107 H 10/05/22 06:03 74 20 188/107 H 10/05/22 05:47 73 18 187/117 H 10/05/22 05:13 75 16 10/05/22 05:03 36.4 C L 84 18 216/109 H Pulse Ox O2 Del Method 10/05/22 16:00 10/05/22 14:00 98 10/05/22 14:00 10/05/22 13:30 10/05/22 13:30 97 10/05/22 13:00 94 10/05/22 13:00 10/05/22 12:30 98 10/05/22 12:30 10/05/22 12:00 98 10/05/22 12:00 10/05/22 11:30 98 10/05/22 11:30 10/05/22 14:18 Room Air 10/05/22 14:59 10/05/22 12:00 10/05/22 12:10 98 Room Air 10/05/22 10:58 98 Room Air 10/05/22 10:33 98 Room Air 10/05/22 09:30 95 Room Air 10/05/22 08:48 99 Room Air 10/05/22 08:08 97 Room Air 10/05/22 07:49 10/05/22 07:00 98 Room Air 10/05/22 06:30 98 10/05/22 06:30 10/05/22 06:12 10/05/22 06:03 97 10/05/22 05:47 10/05/22 05:13 96 Room Air 10/05/22 05:03 98 Room Air Resident Activity Tracking Resident Involvement: Resident Care Provided Care Provided: Adult Hospital Medicine
--- NOTE | 2022-10-05 17:12 | Communication Note ---
Date of Service: October 05, 2022 Afternoon and late am labs reviewed steady critical hyponatremia >150 mL 3% saline x 1 > continue q4h BMP and run these stat -would give another 150 mL 3% saline if needed to get sNa to 119-120 range -thereafter consider lasix, fluid restriction; would avoid salt tabs or urea until bp better controlled HTN urgency -wrote for prn labetalol; continue ARB -recommend SBP target 150-160s -further as per ICU team Q2h neuro checks ordered given HTN and hyponatremia; low threshold for repeat head CT
[2022-10-05 18:51] LABS: BUN Creatinine Ratio 11.9 (10-20); Calcium 8.5 mg/dl (8.5-10.1); Creatinine Clr Calc Pharmacy 120.9 ml/min; Est GFR (Non-African American) 98.3 ml/min
[2022-10-05] MEDS: LABETALOL HCL IV 5 MG/ML 20ML IV PRN ×2 (19:29→23:55)
[2022-10-05 21:54] LABS: BUN Creatinine Ratio 12.1 (10-20); Calcium 8.6 mg/dl (8.5-10.1); Creatinine Clr Calc Pharmacy 108.1 ml/min; Est GFR (African American) 108.8 ml/min; Est GFR (Non-African American) 93.9 ml/min
[2022-10-05] MEDS: SODIUM CHLORIDE 3 % 500 ML IV SCH (22:39)
[2022-10-06 02:39] LABS: Hematocrit (blood only) 37.2 % (40.1-51.0); Hemoglobin 13.8 g/dl (14.0-18.0); Mean Corpuscular Hemoglobin 28.7 pg (25.0-34.0); Mean Corpuscular Hgb Conc 37.1 g/dL (32.0-36.0); Mean Corpuscular Volume 77.3 fL (80.0-100.0); Mean Platelet Volume 9.1 fL (9.4-12.4); Platelet Count 301 K/uL (130-400); RDW Coefficient of Variation 11.7 % (11.5-14.5); RDW Standard Deviation 32.4 fL (36.4-46.3); Red Blood Count 4.81 M/uL (4.63-6.08); White Blood Count 9.18 K/ul (4.8-10.8)
[2022-10-06 03:00] LABS: BUN Creatinine Ratio 12.5 (10-20); Calcium 8.1 mg/dl (8.5-10.1); Creatinine Clr Calc Pharmacy 111.4 ml/min; Est GFR (African American) 110.2 ml/min; Est GFR (Non-African American) 95.1 ml/min; Magnesium 1.6 mg/dl (1.7-2.4); Potassium 4.2 mmol/L (3.5-5.1)
[2022-10-06] MEDS: MAGNESIUM SULFATE / D5W 1 GM/100 ML BAG IV SCH ×3 (03:50→07:52)
[2022-10-06] MEDS: LABETALOL HCL IV 5 MG/ML 20ML IV PRN (04:28)
[2022-10-06] MEDS ORDERED: hydrALAZINE HCL 20 MG/ML VIAL IV STA (05:48)
[2022-10-06] MEDS: SODIUM CHLORIDE 3 % 500 ML IV SCH ×2 (06:35→16:50)
[2022-10-06 06:37] LABS: BUN Creatinine Ratio 10.6 (10-20); Calcium 7.9 mg/dl (8.5-10.1); Creatinine Clr Calc Pharmacy 106.7 ml/min; Est GFR (African American) 108.8 ml/min; Est GFR (Non-African American) 93.9 ml/min
[2022-10-06] MEDS: ATORVASTATIN 40 MG TAB PO SCH (07:53)
[2022-10-06] MEDS: guaiFENesin 600 MG TABCR PO SCH ×2 (07:53→20:40)
[2022-10-06] MEDS: LOSARTAN POTASSIUM 50 MG TAB PO SCH (07:54)
[2022-10-06] MEDS: ICU Protocol for HYPERglycemia SCH ×4 (07:55→21:09)
--- NOTE | 2022-10-06 08:09 | Billing Data ---
Date of Service October 05, 2022 Coding Level of Care Code Critical Care 1st - mins
--- NOTE | 2022-10-06 08:41 | Critical Care Progress Note ---
Date of Service October 06, 2022 Assessment & Plan (1) Hyponatremia: Plan: ICU Assessment and Plans Reason Critically Ill: 77yo Male with PMH HTN HLD came to hospital for COVID related congestion and was admitted for severe hyponatremia. Neuro - [facility] ICU: NEGATIVE Sedation: none Analgesia: none -CT head: No acute intracranial abnormality. Cardiac - HTN: improving - losartan 50mg restarted - daily missed last 2 doses HLD -continue atorvastatin Respiratory - no acute concerns GI - Fluid restriction 1.2 L Full Liquid diet RENAL/LYTES - Hyponatremia -on 3% at 65 mL/hour -continue to trend BMP -advance diet as tolerated - will consider lasix once after next laboratory check - No concerns at this time. ENDO - Prediabetes -A1c 6.1, f/u with PCP HEME - Stable H&H. ID - COVID -ongoing 1 week no fevers currently -isolation precautions -ordered mucinex INTEGUMENTARY - skin clean dry intact LINES/IV ACCESS - PIVs intact. DVT PROPHYLAXIS - Lovenox (2) COVID-19: (3) HLD (hyperlipidemia): (4) HTN (hypertension): Admission and Anticipated Discharge Date Admission Date: October 05, 2022 Results & Data Results & Data ([facility]) Vital Signs (Past 12 Hours) Vital Signs Temp Pulse Resp BP Pulse Ox O2 Del Method 10/06/22 06:00 72 16 175/91 H 97 Room Air 10/06/22 05:30 78 23 187/92 H 98 10/06/22 05:00 80 18 174/97 H 97 Room Air 10/06/22 04:30 78 19 181/94 H 98 10/06/22 04:06 83 16 97 10/06/22 04:00 36.7 C 81 15 187/94 H 96 10/06/22 03:30 76 16 182/98 H 97 Room Air 10/06/22 03:00 72 17 167/96 H 97 10/06/22 02:30 77 16 178/91 H 98 Room Air 10/06/22 02:00 77 19 186/94 H 98 10/06/22 01:30 73 17 185/85 H 97 10/06/22 01:00 70 17 174/89 H 95 10/06/22 00:30 76 16 173/98 H 97 Room Air 10/06/22 00:00 36.8 C 76 18 182/95 H 97 10/05/22 23:30 73 17 195/95 H 99 10/05/22 23:01 86 13 169/137 H 95 10/05/22 22:30 79 19 182/99 H 97 10/05/22 22:00 74 22 170/91 H 98 10/05/22 21:30 75 15 176/87 H 97 10/05/22 21:00 76 17 180/91 H 97 10/06/22 00:00 Room Air 10/06/22 00:00 80 Critical Care Results & Data Vital Signs (Past 12 Hours) Vital Signs Temp Pulse Resp BP Pulse Ox O2 Del Method 10/06/22 06:00 72 16 175/91 H 97 Room Air 10/06/22 05:30 78 23 187/92 H 98 10/06/22 05:00 80 18 174/97 H 97 Room Air 10/06/22 04:30 78 19 181/94 H 98 10/06/22 04:06 83 16 97 10/06/22 04:00 36.7 C 81 15 187/94 H 96 10/06/22 03:30 76 16 182/98 H 97 Room Air 10/06/22 03:00 72 17 167/96 H 97 10/06/22 02:30 77 16 178/91 H 98 Room Air 10/06/22 02:00 77 19 186/94 H 98 10/06/22 01:30 73 17 185/85 H 97 10/06/22 01:00 70 17 174/89 H 95 10/06/22 00:30 76 16 173/98 H 97 Room Air 10/06/22 00:00 36.8 C 76 18 182/95 H 97 10/05/22 23:30 73 17 195/95 H 99 10/05/22 23:01 86 13 169/137 H 95 10/05/22 22:30 79 19 182/99 H 97 10/05/22 22:00 74 22 170/91 H 98 10/05/22 21:30 75 15 176/87 H 97 10/05/22 21:00 76 17 180/91 H 97 10/06/22 00:00 Room Air 10/06/22 00:00 80 Lab & Micro Results (Past 24 Hours) RBC 4.65 M/uL (4.63-6.08) 10/07/22 WBC 9.35 K/ul (4.8-10.8) 10/07/22 Hgb 13.3 g/dl (14.0-18.0) L 10/07/22 Hct 37.0 % (40.1-51.0) L 10/07/22 MCV 79.6 fL (80.0-100.0) L 10/07/22 MCH 28.6 pg (25.0-34.0) 10/07/22 MCHC 35.9 g/dL (32.0-36.0) 10/07/22 RDW Standard Deviation 34.5 fL (36.4-46.3) L 10/07/22 RDW Coefficient of Variation 11.9 % (11.5-14.5) 10/07/22 Plt Count 310 K/uL (130-400) 10/07/22 MPV 8.7 fL (9.4-12.4) L 10/07/22 Na 125 mmol/L (136-145) L 10/07/22 K 3.8 mmol/L (3.5-5.1) 10/07/22 Cl 93 mmol/L (98-107) L 10/07/22 CO2 26 mmol/L (21-32) 10/07/22 Anion Gap 6 (3-11) 10/07/22 BUN 27 mg/dl (6-23) H 10/07/22 Creatinine 0.72 mg/dl (0.6-1.4) 10/07/22 Estimated GFR ( Amer) 105.0 ml/min 10/07/22 Estimated GFR (Non-Af Amer) 90.6 ml/min 10/07/22 BUN/Creatinine Ratio 37.5 (10-20) H 10/07/22 Glu 105 mg/dl (70-99(Fasting)) H 10/07/22 Ca 8.2 mg/dl (8.5-10.1) L 10/07/22 Mg 2.1 mg/dl (1.7-2.4) 10/07/22 05:50 Calcium Level 8.2 mg/dl (8.5-10.1) L 10/07/22 05:50 I & O Totals 24 Hours 10/05/22 10/06/22 10/07/22 06:59 06:59 06:59 Intake Total 500 / 500 1606 / 1606 100 / 100 Output Total 1350 / 1350 Balance 500 / 500 256 / 256 100 / 100 Cumulative 10/05/22 04:57 thru 10/06/22 07:50 Intake Total 2206 Output Total 1350 Balance 856 RT Ventilator Mngmt (Last Documented) Ventilator Ordered Settings Respiratory Rate 16 10/06/22 06:00 Ventilator - PT Measurements Respiratory Rate 16 Coding Level of Care Code 20769 Subseq Hosp Care Lvl 2 Diagnoses Hyponatremia E87.1 COVID-19 U07.1 HLD (hyperlipidemia) E78.5 HTN (hypertension) I10
--- NOTE | 2022-10-06 09:36 | Nephrology Progress Note ---
Date of Service October 06, 2022 Assessment & Plan (1) Hyponatremia: Plan: Euvolemic hypotonic hyponatremia likely multifactorial ; favor this rather than hypovolemic state >> low solute diet +/- lung issues from covid infection -fluid restrict 1.2L/day - sNA - Still not on goal, agree with 3% NS with the present rate. - IF na still less than 120 on next check give furosemide 20 mg Iv once. - d/c Hypertonic saline once sodium reaches 120+ and start on urea 30 mg BId with furosemide 20 mg IV bid - q4h BMP until Na 120, then q6. -maintain eukalemia, replace magnesium. -goal sNa is 122-124 for tomorrow AM (2) HTN (hypertension): Plan: some situational HTN. continue losartan OP dose; had prn labetalol -avoid thiazides -Better Admission and Anticipated Discharge Date Admission Date: October 05, 2022 Subjective Seen for acute severe hyponatremia Review of Systems Review of Systems: Alert oriented no pedal edema Passing urine Physical Exam Physical Exam: General Appearance:No apparent distress Head: normocephalic, Atraumatic Eyes: normal inspection, EOMI Neck: supple, Trachea midline Respiratory/Chest: Decreased breath sounds, basal crackles, No accessory muscle use Cardiovascular: S1, S2, No murmur Abdomen/GI:Soft, Non tender, Bowel sounds present Extremities/Musculoskeletal:normal inspection, no edema Neurologic/Psych:AAOX3, grossly no focal neurological deficits Results & Data ([facility]) Vital Signs (Past 12 Hours) Vital Signs Temp Pulse Resp BP Pulse Ox O2 Del Method 10/06/22 08:30 77 15 97 Room Air 10/06/22 08:30 156/64 H 10/06/22 08:00 85 21 97 10/06/22 08:00 160/72 H 10/06/22 07:30 76 16 97 10/06/22 07:30 174/96 H 10/06/22 07:00 82 17 98 10/06/22 07:00 156/108 H 10/06/22 07:45 Room Air 10/06/22 06:00 72 16 175/91 H 97 Room Air 10/06/22 05:30 78 23 187/92 H 98 10/06/22 05:00 80 18 174/97 H 97 Room Air 10/06/22 04:30 78 19 181/94 H 98 10/06/22 04:06 83 16 97 10/06/22 04:00 36.7 C 81 15 187/94 H 96 10/06/22 03:30 76 16 182/98 H 97 Room Air 10/06/22 03:00 72 17 167/96 H 97 10/06/22 02:30 77 16 178/91 H 98 Room Air 10/06/22 02:00 77 19 186/94 H 98 10/06/22 01:30 73 17 185/85 H 97 10/06/22 01:00 70 17 174/89 H 95 10/06/22 00:30 76 16 173/98 H 97 Room Air 10/06/22 00:00 36.8 C 76 18 182/95 H 97 10/05/22 23:30 73 17 195/95 H 99 10/05/22 23:01 86 13 169/137 H 95 10/05/22 22:30 79 19 182/99 H 97 10/05/22 22:00 74 22 170/91 H 98 10/05/22 21:30 75 15 176/87 H 97 10/06/22 00:00 Room Air 10/06/22 00:00 80 Laboratory Results 10/06/22 02:27 10/06/22 05:52
[2022-10-06] MEDS: MAGNESIUM OXIDE 400 MG TAB PO SCH ×2 (09:39→20:45)
[2022-10-06] MEDS ORDERED: FUROSEMIDE INJ 20 MG/2 ML VIAL IV PRN (11:14)
[2022-10-06] MEDS ORDERED: Nursing to Pharmacy Communication SCH (11:15)
[2022-10-06] MEDS ORDERED: CALCIUM CARBONATE 500 MG CHEWABLE TAB PO PRN (12:40)
[2022-10-06] MEDS: ENOXAPARIN INJ 40 MG/0.4 ML SYR SQ SCH (12:54)
[2022-10-06 13:23] LABS: BUN Creatinine Ratio 16.4 (10-20); Calcium 7.9 mg/dl (8.5-10.1); Creatinine Clr Calc Pharmacy 115.5 ml/min; Est GFR (African American) 112.4 ml/min; Potassium 4.1 mmol/L (3.5-5.1)
[2022-10-06] MEDS: CHLORASEPTIC 1.4% SOLN 180 ML BTL MT PRN ×2 (13:48→20:35)
--- NOTE | 2022-10-06 14:10 | Hospitalist Progress Note ---
Date of Service October 06, 2022 Assessment & Plan (1) Acute hyponatremia: Plan: This is a 77yo M with a PMH of HTN and HLD who presents with intermittent nausea, vomiting and cough was found to have hyponatremia. Acute hyponatremia Acute metabolic encephalopathy secondary to hyponatremia TSH normal Sodium:115>>113>>118 Urine osmolality 421, urine sodium 87 Serum osmolality 246 Continue hypertonic saline as per nephrology, cloud subject matter expert Monitor sodium levels closely Monitor for any seizure Fluid restriction Also started on urea 30 mg twice daily, Lasix 20 mg IV twice daily Plan to discontinue hypertonic saline once sodium reaches 120 Appreciate cloud subject matter expert, nephrology help Hypomagnesemia Replete electrolytes as needed (2) COVID-19: Plan: COVID-19 infection Recently finished Paxlovid course Saturating well on room air Conservative management Hypertensive urgency Continue losartan IV Labetalol PRN (3) HTN (hypertension): Plan: BP elevated at 178/92. Given 10 mg IV labetalol in ED, just given missed a.m. dose of losartan. Continue to monitor (4) HLD (hyperlipidemia): Plan: Continue statin DVT Px: SQ Lovenox Code status: FULL CODE Admission and Anticipated Discharge Date Admission Date: October 05, 2022 Subjective Patient is seen and examined at bedside States having cough with minimal expectoration Also reports sore throat and heartburn Confusion slightly improved as per patient's at bedside Denies any chest pain, dizziness, nausea, abdominal pain Sodium level slowly improving No other complaints Review of Systems Review of Systems: All systems reviewed & are unremarkable except as noted in Subjective Physical Exam Physical Exam: Physical Exam: Vitals signs as noted above General Appearance:Moderately built and nourished, no apparent distress Head: normocephalic, Atraumatic Eyes: normal inspection, EOMI Neck: supple, Trachea midline Respiratory/Chest: Decreased breath sounds, CTA, No accessory muscle use Cardiovascular: S1, S2, No murmur Abdomen/GI:Soft, Non tender, Bowel sounds present Extremities/Musculoskeletal:normal inspection, 1-2+ B/L LE edema Neurologic/Psych:AAOX3, grossly no focal neurological deficits Skin: normal color, warm Results & Data Results & Data ([facility]) Vital Signs (Past 12 Hours) Vital Signs Temp Pulse Resp BP Pulse Ox O2 Del Method 10/06/22 12:30 137/68 10/06/22 12:30 81 21 96 12/17/22 12:00 84 23 96 Room Air 10/06/22 12:00 130/75 10/06/22 11:30 157/80 H 10/06/22 11:30 78 24 97 10/06/22 11:00 79 22 98 10/06/22 11:00 143/77 H 10/06/22 10:30 153/70 H 10/06/22 10:30 73 18 97 10/06/22 10:00 80 16 98 10/06/22 10:00 149/75 H 10/06/22 09:30 130/71 10/06/22 09:30 73 15 97 Room Air 10/06/22 09:00 82 19 96 10/06/22 09:00 163/76 H 10/06/22 07:35 37.1 C 10/06/22 08:30 77 15 97 Room Air 10/06/22 08:30 156/64 H 10/06/22 08:00 85 21 97 10/06/22 08:00 160/72 H 10/06/22 07:30 76 16 97 10/06/22 07:30 174/96 H 10/06/22 07:00 82 17 98 10/06/22 07:00 156/108 H 10/06/22 07:45 Room Air 10/06/22 06:00 72 16 175/91 H 97 Room Air 10/06/22 05:30 78 23 187/92 H 98 10/06/22 05:00 80 18 174/97 H 97 Room Air 10/06/22 04:30 78 19 181/94 H 98 10/06/22 04:06 83 16 97 10/06/22 04:00 36.7 C 81 15 187/94 H 96 10/06/22 03:30 76 16 182/98 H 97 Room Air 10/06/22 03:00 72 17 167/96 H 97 10/06/22 02:30 77 16 178/91 H 98 Room Air Laboratory Results Short CBC 10/06/22 Range/Units 02:27 WBC 9.18 (4.8-10.8) K/ul Hgb 13.8 L (14.0-18.0) g/dl Hct 37.2 L (40.1-51.0) % Plt Count 301 (130-400) K/uL BMP 10/05/22 10/05/22 10/05/22 14:14 18:17 21:14 Sodium 114 L* 113 L* 114 L* Potassium 4.2 4.0 4.0 Chloride 80 L 82 L 81 L Carbon Dioxide 27 24 25 BUN 7 7 8 Creatinine 0.65 0.59 L 0.66 Glucose 177 H 139 H 132 H Calcium 9.2 8.5 8.6 10/06/22 10/06/22 10/06/22 02:31 05:52 11:54 Sodium 115 L* 116 L* 118 L* Potassium 4.2 4.0 4.1 Chloride 84 L 85 L 89 L Carbon Dioxide 24 24 24 BUN 8 7 10 Creatinine 0.64 0.66 0.61 Glucose 135 H 137 H 129 H Calcium 8.1 L 7.9 L 7.9 L
[2022-10-06 18:39] LABS: Creatinine Clr Calc Pharmacy 93.9 ml/min; Est GFR (African American) 103.3 ml/min; Est GFR (Non-African American) 89.1 ml/min; Potassium 4.1 mmol/L (3.5-5.1)
[2022-10-06] MEDS: FUROSEMIDE INJ 20 MG/2 ML VIAL IV SCH (20:40)
[2022-10-06] MEDS: UREA (UREA-NA) 15 GM PACK PO SCH (20:43)
[2022-10-07 01:01] LABS: BUN Creatinine Ratio 49.3 (10-20); Calcium 8.2 mg/dl (8.5-10.1); Creatinine Clr Calc Pharmacy 96.5 ml/min; Est GFR (African American) 104.4 ml/min; Est GFR (Non-African American) 90.1 ml/min; Potassium 3.8 mmol/L (3.5-5.1)
[2022-10-07 06:01] LABS: Hemoglobin 13.3 g/dl (14.0-18.0); Mean Corpuscular Hemoglobin 28.6 pg (25.0-34.0); Mean Corpuscular Hgb Conc 35.9 g/dL (32.0-36.0); Mean Corpuscular Volume 79.6 fL (80.0-100.0); Mean Platelet Volume 8.7 fL (9.4-12.4); Platelet Count 310 K/uL (130-400); RDW Coefficient of Variation 11.9 % (11.5-14.5); RDW Standard Deviation 34.5 fL (36.4-46.3); Red Blood Count 4.65 M/uL (4.63-6.08); White Blood Count 9.35 K/ul (4.8-10.8)
[2022-10-07 06:56] LABS: BUN Creatinine Ratio 37.5 (10-20); Calcium 8.2 mg/dl (8.5-10.1); Est GFR (Non-African American) 90.6 ml/min; Magnesium 2.1 mg/dl (1.7-2.4); Potassium 3.8 mmol/L (3.5-5.1)
[2022-10-07] MEDS: ICU Protocol for HYPERglycemia SCH (07:51)
[2022-10-07] MEDS: ATORVASTATIN 40 MG TAB PO SCH (08:31)
[2022-10-07] MEDS: FUROSEMIDE INJ 20 MG/2 ML VIAL IV SCH ×3 (08:31→21:25)
[2022-10-07] MEDS: guaiFENesin 600 MG TABCR PO SCH ×2 (08:32→21:21)
[2022-10-07] MEDS: UREA (UREA-NA) 15 GM PACK PO SCH ×2 (08:32→21:18)
[2022-10-07] MEDS: LOSARTAN POTASSIUM 50 MG TAB PO SCH (08:32)
[2022-10-07] MEDS: MAGNESIUM OXIDE 400 MG TAB PO SCH ×2 (08:32→21:23)
--- NOTE | 2022-10-07 09:45 | Nephrology Progress Note ---
Date of Service October 07, 2022 Assessment & Plan (1) Hyponatremia: Plan: Euvolemic hypotonic hyponatremia likely multifactorial ; favor this rather than hypovolemic state >> low solute diet +/- lung issues from covid infection -fluid restrict 1.2L/day - sNA - Rate of correction acceptable - His UOP has improved, renal functions wnl, - Continue on urea 30 mg BID and furosemide 20 mg IV tid - q 12 BMP -maintain eukalemia, replace magnesium. -goal sNa is 134-126 by tomorrow AM (2) HTN (hypertension): Plan: -avoid thiazides -Recommend increasing losartan to 100 mg daily from tmrw am, continue PRN labetolol -Better Admission and Anticipated Discharge Date Admission Date: October 05, 2022 Subjective Patient is seen and examined at bedside Denies any chest pain, dizziness, nausea, abdominal pain Sodium level improving UOP good No other complaints Review of Systems Review of Systems: All systems reviewed & are unremarkable except as noted in HPI & below Physical Exam Physical Exam: General Appearance:No apparent distress Head: normocephalic, Atraumatic Eyes: normal inspection, EOMI Neck: supple, Trachea midline Respiratory/Chest: Decreased breath sounds, basal crackles, No accessory muscle use Cardiovascular: S1, S2, No murmur Abdomen/GI:Soft, Non tender, Bowel sounds present Extremities/Musculoskeletal:normal inspection, no edema Neurologic/Psych:AAOX3, grossly no focal neurological deficits Results & Data ([facility]) Vital Signs (Past 12 Hours) Vital Signs Temp Pulse Resp BP Pulse Ox O2 Del Method 10/07/22 08:00 83 19 163/83 H 94 Room Air 10/07/22 07:41 81 21 158/84 H 94 Room Air 10/07/22 07:00 71 19 157/79 H 97 Room Air 10/07/22 08:00 Room Air 10/07/22 08:00 36.8 C 10/07/22 08:00 69 10/07/22 06:00 69 16 97 10/07/22 06:00 150/80 H 10/07/22 05:00 81 21 94 10/07/22 05:00 162/77 H 10/07/22 04:00 77 17 95 10/07/22 04:00 133/67 10/07/22 03:00 77 15 97 12/18/22 02:00 81 18 95 10/07/22 02:00 156/78 H 10/07/22 01:01 84 21 96 10/07/22 01:01 155/74 H 10/07/22 01:00 82 18 95 10/07/22 00:00 76 17 95 10/07/22 00:00 146/72 H 10/06/22 23:01 158/78 H 10/06/22 23:01 77 12 95 10/06/22 23:00 77 13 97 10/06/22 23:55 37.0 C 10/06/22 23:52 84 10/06/22 23:19 37.1 C 10/06/22 22:01 84 17 95 10/06/22 22:01 162/95 H 10/06/22 22:00 94 H 19 93 10/06/22 23:05 Room Air Laboratory Results 10/07/22 05:50 10/07/22 05:50
--- NOTE | 2022-10-07 10:22 | Critical Care Progress Note ---
Date of Service October 07, 2022 Assessment & Plan (1) Hyponatremia: Plan: ICU Assessment and Plans Reason Critically Ill: 77yo Male with PMH HTN HLD came to hospital for COVID related congestion and was admitted for severe hyponatremia. Neuro - [facility] ICU: NEGATIVE Sedation: none Analgesia: none -CT head: No acute intracranial abnormality. Cardiac - HTN: improved - losartan 50mg HLD -continue atorvastatin Respiratory - no acute concerns GI - Fluid restriction 1.2 L Regular diet RENAL/LYTES - Hyponatremia: Continued improvement -Deferring to nephrology - No concerns at this time. ENDO - Prediabetes -A1c 6.1, f/u with PCP HEME - Stable H&H. ID - COVID -isolation precautions INTEGUMENTARY - skin clean dry intact LINES/IV ACCESS - PIVs intact. DVT PROPHYLAXIS - Lovenox Stable for downgrade out of ICU. (2) COVID-19: (3) HLD (hyperlipidemia): (4) HTN (hypertension): Admission and Anticipated Discharge Date Admission Date: October 05, 2022 Subjective Patient feeling well. No complaints at this time. Physical Exam Physical Exam: General: Alert. nontoxic. Skin: Warm, dry, Head: Atraumatic Ears, nose, mouth and throat: airway patent Cardiovascular: Normal peripheral perfusion Respiratory: no respiratory distress Gastrointestinal: Non distended Musculoskeletal: No deformity Results & Data Results & Data ([facility]) Vital Signs (Past 12 Hours) Vital Signs Temp Pulse Resp BP Pulse Ox O2 Del Method 10/07/22 09:00 72 17 156/70 H 97 Room Air 10/07/22 08:00 83 19 163/83 H 94 Room Air 10/07/22 07:41 81 21 158/84 H 94 Room Air 10/07/22 07:00 71 19 157/79 H 97 Room Air 10/07/22 08:00 Room Air 10/07/22 08:00 36.8 C 10/07/22 08:00 69 10/07/22 06:00 69 16 97 10/07/22 06:00 150/80 H 10/07/22 05:00 81 21 94 10/07/22 05:00 162/77 H 10/07/22 04:00 77 17 95 10/07/22 04:00 133/67 10/07/22 03:00 77 15 97 12/18/22 02:00 81 18 95 10/07/22 02:00 156/78 H 10/07/22 01:01 84 21 96 10/07/22 01:01 155/74 H 10/07/22 01:00 82 18 95 10/07/22 00:00 76 17 95 10/07/22 00:00 146/72 H 10/06/22 23:01 158/78 H 10/06/22 23:01 77 12 95 10/06/22 23:00 77 13 97 10/06/22 23:55 37.0 C 10/06/22 23:52 84 10/06/22 23:19 37.1 C 10/06/22 23:05 Room Air Critical Care Results & Data Vital Signs (Past 12 Hours) Vital Signs Temp Pulse Resp BP Pulse Ox O2 Del Method 10/07/22 09:00 72 17 156/70 H 97 Room Air 10/07/22 08:00 83 19 163/83 H 94 Room Air 10/07/22 07:41 81 21 158/84 H 94 Room Air 10/07/22 07:00 71 19 157/79 H 97 Room Air 10/07/22 08:00 Room Air 10/07/22 08:00 36.8 C 10/07/22 08:00 69 10/07/22 06:00 69 16 97 10/07/22 06:00 150/80 H 10/07/22 05:00 81 21 94 10/07/22 05:00 162/77 H 10/07/22 04:00 77 17 95 10/07/22 04:00 133/67 10/07/22 03:00 77 15 97 10/07/22 02:00 81 18 95 10/07/22 02:00 156/78 H 10/07/22 01:01 84 21 96 10/07/22 01:01 155/74 H 10/07/22 01:00 82 18 95 10/07/22 00:00 76 17 95 10/07/22 00:00 146/72 H 10/06/22 23:01 158/78 H 10/06/22 23:01 77 12 95 10/06/22 23:00 77 13 97 10/06/22 23:55 37.0 C 10/06/22 23:52 84 10/06/22 23:19 37.1 C 10/06/22 23:05 Room Air Lab & Micro Results (Past 24 Hours) RBC 4.65 M/uL (4.63-6.08) 10/07/22 WBC 9.35 K/ul (4.8-10.8) 10/07/22 Hgb 13.3 g/dl (14.0-18.0) L 10/07/22 Hct 37.0 % (40.1-51.0) L 10/07/22 MCV 79.6 fL (80.0-100.0) L 10/07/22 MCH 28.6 pg (25.0-34.0) 10/07/22 MCHC 35.9 g/dL (32.0-36.0) 10/07/22 RDW Standard Deviation 34.5 fL (36.4-46.3) L 10/07/22 RDW Coefficient of Variation 11.9 % (11.5-14.5) 10/07/22 Plt Count 310 K/uL (130-400) 10/07/22 MPV 8.7 fL (9.4-12.4) L 10/07/22 Na 125 mmol/L (136-145) L 10/07/22 K 3.8 mmol/L (3.5-5.1) 10/07/22 Cl 93 mmol/L (98-107) L 10/07/22 CO2 26 mmol/L (21-32) 10/07/22 Anion Gap 6 (3-11) 10/07/22 BUN 27 mg/dl (6-23) H 10/07/22 Creatinine 0.72 mg/dl (0.6-1.4) 10/07/22 Estimated GFR ( Amer) 105.0 ml/min 10/07/22 Estimated GFR (Non-Af Amer) 90.6 ml/min 10/07/22 BUN/Creatinine Ratio 37.5 (10-20) H 10/07/22 Glu 105 mg/dl (70-99(Fasting)) H 10/07/22 Ca 8.2 mg/dl (8.5-10.1) L 10/07/22 Mg 2.1 mg/dl (1.7-2.4) 10/07/22 05:50 Calcium Level 8.2 mg/dl (8.5-10.1) L 10/07/22 05:50 I & O Totals 24 Hours 10/06/22 10/07/22 10/08/22 06:59 06:59 06:59 Intake Total 1606 / 1606 1613 / 1613 360 / 360 Output Total 1350 / 1350 2550 / 2550 550 / 550 Balance 256 / 256 -937 / -937 -190 / -190 Cumulative 10/05/22 04:57 thru 10/07/22 09:54 Intake Total 4079 Output Total 4450 Balance -371 RT Ventilator Mngmt (Last Documented) Ventilator Ordered Settings Respiratory Rate 17 10/07/22 09:00 Ventilator - PT Measurements Respiratory Rate 17 Coding Level of Care Code 69460 Subseq Hosp Care Lvl 1 Diagnoses Hyponatremia E87.1 COVID-19 U07.1 HLD (hyperlipidemia) E78.5 HTN (hypertension) I10
[2022-10-07] MEDS: ENOXAPARIN INJ 40 MG/0.4 ML SYR SQ SCH (13:36)
[2022-10-07 14:56] LABS: BUN Creatinine Ratio 51.6 (10-20); Calcium 9.5 mg/dl (8.5-10.1); Creatinine Clr Calc Pharmacy 74.3 ml/min; Est GFR (African American) 89.8 ml/min; Est GFR (Non-African American) 77.4 ml/min; Potassium 4.3 mmol/L (3.5-5.1)
--- NOTE | 2022-10-07 15:15 | Hospitalist Progress Note ---
Date of Service October 07, 2022 Assessment & Plan (1) Acute hyponatremia: Plan: This is a 77yo M with a PMH of HTN and HLD who presents with intermittent nausea, vomiting and cough was found to have hyponatremia. Acute hyponatremia Acute metabolic encephalopathy secondary to hyponatremia TSH normal Sodium:115>>113>>118>125 Urine osmolality 421, urine sodium 87 Serum osmolality 246 Hypertonic saline discontinued Appreciate nephrology, cotton grower help Continue fluid restriction Urea, Lasix as per Nephrology Monitor sodium levels Hypomagnesemia Replete electrolytes as needed (2) COVID-19: Plan: COVID-19 infection Recently finished Paxlovid course Saturating well on room air Conservative management (3) HTN (hypertension): Plan: Hypertensive urgency Continue losartan IV Labetalol PRN (4) HLD (hyperlipidemia): Plan: Continue statin DVT Px: SQ Lovenox Code status: FULL CODE Admission and Anticipated Discharge Date Admission Date: October 05, 2022 Subjective Patient is seen and examined at bedside Feels well today No new complaints Cough improving Sore throat, heartburn improving as well Sodium levels improved to 125 Denies any chest pain, dizziness, nausea, abdominal pain Review of Systems Review of Systems: All systems reviewed & are unremarkable except as noted in Subjective Physical Exam Physical Exam: Physical Exam: Vitals signs as noted above General Appearance:Moderately built and nourished, no apparent distress Head: normocephalic, Atraumatic Eyes: normal inspection, EOMI Neck: supple, Trachea midline Respiratory/Chest: Decreased breath sounds, CTA, No accessory muscle use Cardiovascular: S1, S2, No murmur Abdomen/GI:Soft, Non tender, Bowel sounds present Extremities/Musculoskeletal:normal inspection, Trace edema Neurologic/Psych:AAOX3, grossly no focal neurological deficits Skin: normal color, warm Results & Data Results & Data ([facility]) Vital Signs (Past 12 Hours) Vital Signs Temp Pulse Pulse Resp BP BP Pulse Ox 10/07/22 15:10 36.5 C 71 18 153/83 H 98 10/07/22 14:01 80 18 127/60 96 10/07/22 13:36 80 15 150/73 H 95 10/07/22 12:00 80 20 133/68 97 10/07/22 11:02 72 16 141/73 H 97 10/07/22 09:00 72 17 156/70 H 97 10/07/22 08:00 83 19 163/83 H 94 10/07/22 07:41 81 21 158/84 H 94 10/07/22 07:00 71 19 157/79 H 97 10/07/22 08:00 10/07/22 08:00 36.8 C 10/07/22 08:00 69 10/07/22 06:00 69 16 97 10/07/22 06:00 150/80 H 10/07/22 05:00 81 21 94 10/07/22 05:00 162/77 H 10/07/22 04:00 77 17 95 10/07/22 04:00 133/67 O2 Del Method 10/07/22 15:10 Room Air 10/07/22 14:01 Room Air 10/07/22 13:36 Room Air 10/07/22 12:00 Room Air 10/07/22 11:02 Room Air 10/07/22 09:00 Room Air 10/07/22 08:00 Room Air 10/07/22 07:41 Room Air 10/07/22 07:00 Room Air 10/07/22 08:00 Room Air 10/07/22 08:00 10/07/22 08:00 10/07/22 06:00 10/07/22 06:00 10/07/22 05:00 10/07/22 05:00 10/07/22 04:00 10/07/22 04:00 Laboratory Results Short CBC 10/07/22 Range/Units 05:50 WBC 9.35 (4.8-10.8) K/ul Hgb 13.3 L (14.0-18.0) g/dl Hct 37.0 L (40.1-51.0) % Plt Count 310 (130-400) K/uL BMP 10/06/22 10/07/22 10/07/22 18:02 00:19 05:50 Sodium 122 L 123 L 125 L Potassium 4.1 3.8 3.8 Chloride 91 L 92 L 93 L Carbon Dioxide 26 25 26 BUN 12 36 H D 27 H Creatinine 0.75 0.73 0.72 Glucose 119 H 111 H 105 H Calcium 8.0 L 8.2 L 8.2 L 10/07/22 13:55 Sodium 125 L Potassium 4.3 Chloride 90 L Carbon Dioxide 29 BUN 49 H D Creatinine 0.95 Glucose 113 H Calcium 9.5
[2022-10-07 19:28] LABS: Creatinine Clr Calc Pharmacy 56.9 ml/min; Est GFR (Non-African American) 56.1 ml/min
[2022-10-07 19:29] LABS: BUN Creatinine Ratio 35.5 (10-20); Potassium 3.7 mmol/L (3.5-5.1)
[2022-10-07] MEDS: BENZONATATE 100 MG CAPSULE PO PRN (21:21)
--- NOTE | 2022-10-07 21:23 | Electrocardiogram Report ---
Test Reason : Blood Pressure : / mmHG Vent. Rate : 071 BPM Atrial Rate : 071 BPM P-R Int : 188 ms QRS Dur : 150 ms QT Int : 436 ms P-R-T Axes : 046 017 021 degrees QTc Int : 473 ms Normal sinus rhythm Right bundle branch block Abnormal ECG When compared with ECG of 05-OCT-2022 05:30, No significant change was found Confirmed by Jacques Harrison ([id number]) on 10/07/2022 9:22:41 PM Referred By: REFERRED SELF Confirmed By:Jacques Harrison
[2022-10-07] MEDS ORDERED: HYDROcodone/HOMATROPINE SYRUP 5MG/1.5MG 5ML UDP PO STA (22:38)
[2022-10-08 08:27] LABS: BUN Creatinine Ratio 57.8 (10-20); Calcium 9.3 mg/dl (8.5-10.1); Creatinine Clr Calc Pharmacy 78.3 ml/min; Est GFR (African American) 95.8 ml/min; Est GFR (Non-African American) 82.7 ml/min; Magnesium 2.4 mg/dl (1.7-2.4); Potassium 3.9 mmol/L (3.5-5.1)
[2022-10-08] MEDS: MAGNESIUM OXIDE 400 MG TAB PO SCH ×2 (09:00→21:39)
[2022-10-08] MEDS: FUROSEMIDE INJ 20 MG/2 ML VIAL IV SCH ×3 (09:00→21:37)
[2022-10-08] MEDS: ATORVASTATIN 40 MG TAB PO SCH (09:01)
[2022-10-08] MEDS: guaiFENesin 600 MG TABCR PO SCH (09:01)
[2022-10-08] MEDS: LOSARTAN POTASSIUM 50 MG TAB PO SCH (09:01)
[2022-10-08] MEDS: UREA (UREA-NA) 15 GM PACK PO SCH ×2 (09:01→21:40)
[2022-10-08] MEDS: ENOXAPARIN INJ 40 MG/0.4 ML SYR SQ SCH (13:27)
--- NOTE | 2022-10-08 15:52 | Hospitalist Progress Note ---
Date of Service October 08, 2022 Assessment & Plan (1) Acute hyponatremia: Plan: This is a 77yo M with a PMH of HTN and HLD who presents with intermittent nausea, vomiting and cough was found to have hyponatremia. Acute hyponatremia Acute metabolic encephalopathy secondary to hyponatremia TSH normal Sodium:115>>113>>118>125>129 Urine osmolality 421, urine sodium 87 Serum osmolality 246 Hypertonic saline discontinued Appreciate nephrology, gas technician help Continue fluid restriction Urea, Lasix as per Nephrology Monitor sodium levels Sodium levels improving Mental status seem to be back to baseline Hypomagnesemia Replete electrolytes as needed (2) COVID-19: Plan: COVID-19 infection Recently finished Paxlovid course Saturating well on room air Conservative management Antitussives as needed (3) HTN (hypertension): Plan: Hypertensive urgency Continue losartan IV Labetalol PRN (4) HLD (hyperlipidemia): Plan: Continue statin DVT Px: SQ Lovenox Code status: FULL CODE Admission and Anticipated Discharge Date Admission Date: October 05, 2022 Subjective Patient is seen and examined at bedside States feeling much better today Poor sleep overnight Cough with expectoration, improving Sodium levels improved to 129 Denies any chest pain, dizziness, nausea, abdominal pain Review of Systems Review of Systems: All systems reviewed & are unremarkable except as noted in Subjective Physical Exam Physical Exam: Physical Exam: Vitals signs as noted above General Appearance:Moderately built and nourished, no apparent distress Head: normocephalic, Atraumatic Eyes: normal inspection, EOMI Neck: supple, Trachea midline Respiratory/Chest: Decreased breath sounds, CTA, No accessory muscle use Cardiovascular: S1, S2, No murmur Abdomen/GI:Soft, Non tender, Bowel sounds present Extremities/Musculoskeletal:normal inspection, Trace edema Neurologic/Psych:AAOX3, grossly no focal neurological deficits Skin: normal color, warm Results & Data Results & Data ([facility]) Vital Signs (Past 12 Hours) Vital Signs Temp Pulse Pulse Resp BP BP Pulse Ox 10/08/22 08:00 10/08/22 11:53 36.7 C 86 18 125/69 96 10/08/22 07:51 37 C 85 20 132/74 96 O2 Del Method 10/08/22 08:00 Room Air 10/08/22 11:53 Room Air 10/08/22 07:51 Room Air Laboratory Results BMP 10/07/22 10/08/22 18:58 07:22 Sodium 126 L 129 L Potassium 3.7 3.9 Chloride 91 L 92 L Carbon Dioxide 30 30 BUN 44 H 52 H Creatinine 1.24 0.90 D Glucose 134 H 118 H Calcium 9.0 9.3
--- NOTE | 2022-10-08 19:43 | Nephrology Progress Note ---
Date of Service October 08, 2022 Assessment & Plan (1) Hyponatremia: Plan: Euvolemic hypotonic hyponatremia likely multifactorial >> low solute diet +/- lung issues from covid infection -fluid restrict 1.2L/day > protein shakes do not count toward limit - sNA - Rate of correction acceptable - His UOP has improved, renal function wnl, - Continue on urea 30 mg BID and furosemide 20 mg IV tid > - recheck bmp in am -maintain eukalemia, replace magnesium. -goal sNa is 133-135 by tomorrow AM (2) HTN (hypertension): Plan: controlled now -avoid thiazides -continue losartan 50 mg daily and lasix Admission and Anticipated Discharge Date Admission Date: October 05, 2022 Subjective improving respiratory status; still w/ productive cough > poor sleep Review of Systems Review of Systems: All systems reviewed & are unremarkable except as noted in Subjective Physical Exam Constitutional: well developed, well nourished, average body habitus and cooperative; no acute distress Eyes: EOM intact bilaterally ENMT: Ears: no external ear abnormality Nose: no external nose abnormality Mouth: + dry oral mucous membranes Neck: no nuchal rigidity Respiratory: normal respiratory effort Auscultation: + diminished lung sounds Cardiovascular: Rate/Rhythm: regular rate and regular rhythm Extremities: no edema Gastrointestinal (Abdomen): Inspection/Auscultation: normal bowel sounds Percussion/Palpation: abdomen soft; abdomen nontender Musculoskeletal: Extremities: strength 5/5 throughout Skin: no rashes, warm and dry Psychiatric: Orientation: alert and oriented x 3 (improved/brighter affect, speaks more fully/completely/extendedly) Speech: normal rate/rhythm/volume of speech Insight: good insight Judgement: good judgement Results & Data ([facility]) Vital Signs (Past 12 Hours) Vital Signs Temp Pulse Pulse Resp BP BP Pulse Ox 10/08/22 19:21 36.6 C 88 19 146/78 H 99 10/08/22 16:08 36.5 C 79 18 105/65 97 10/08/22 08:00 10/08/22 11:53 36.7 C 86 18 125/69 96 10/08/22 07:51 37 C 85 20 132/74 96 O2 Del Method 10/08/22 19:21 Room Air 10/08/22 16:08 Room Air 10/08/22 08:00 Room Air 10/08/22 11:53 Room Air 10/08/22 07:51 Room Air Laboratory Results 10/07/22 05:50 10/08/22 07:22
[2022-10-08] MEDS: BENZONATATE 100 MG CAPSULE PO PRN (21:38)
[2022-10-08] MEDS: guaiFENesin/DEXTROM SYRUP 200MG/20MG 10ML UDC PO PRN (21:38)
[2022-10-09] MEDS ORDERED: HYDROcodone/HOMATROPINE SYRUP 5MG/1.5MG 5ML UDP PO PRN (02:39)
[2022-10-09 08:09] LABS: BUN Creatinine Ratio 65.4 (10-20); Calcium 9.2 mg/dl (8.5-10.1); Creatinine Clr Calc Pharmacy 67.7 ml/min; Est GFR (African American) 80.5 ml/min; Est GFR (Non-African American) 69.4 ml/min; Potassium 3.7 mmol/L (3.5-5.1)
[2022-10-09] MEDS ORDERED: FUROSEMIDE 40 MG TAB PO SCH (09:00)
[2022-10-09] MEDS ORDERED: POTASSIUM CHLORIDE CRTAB 20 MEQ TABCR PO SCH (09:00)
[2022-10-09] MEDS: guaiFENesin/DEXTROM SYRUP 200MG/20MG 10ML UDC PO PRN (09:04)
[2022-10-09] MEDS: MAGNESIUM OXIDE 400 MG TAB PO SCH (09:04)
[2022-10-09] MEDS: ATORVASTATIN 40 MG TAB PO SCH (09:04)
[2022-10-09] MEDS: LOSARTAN POTASSIUM 50 MG TAB PO SCH (09:04)
[2022-10-09] MEDS: UREA (UREA-NA) 15 GM PACK PO SCH (09:49)
[2022-10-09] MEDS: ENOXAPARIN INJ 40 MG/0.4 ML SYR SQ SCH (12:16)
--- NOTE | 2022-10-09 12:59 | Nephrology Progress Note ---
Date of Service October 09, 2022 Assessment & Plan (1) Hyponatremia: Plan: Euvolemic hypotonic hyponatremia likely multifactorial >> low solute diet +/- lung issues from covid infection -fluid restrict 1.2L/day > protein shakes do not count toward limit - sNA - Rate of correction acceptable - His UOP has improved, renal function wnl - ideally should have urea continue at d/c but will defer d/t $$ issues - Continue on urea 30 mg BID and furosemide 20 mg IV tid > - recheck bmp in am -maintain eukalemia, replace magnesium. -goal sNa is 133-135 by tomorrow AM OK to d/c from nephro standpoint; will sign off D/C recs: -continue 1.5 L fluid limit at d/c; protein shakes do not count toward this -d/c on furosemide 60 mg po two daily doses at least 4 hours or more apart -start potassium 40 mEq bid at d/c -educate pt to eat high potassium diet -on Sat/ BMP, serum osmolality, urine osmolality, random urine sodium x 4 wks to be ordered by nephro RN -hospital D/C appt w/ me in 2-3 wks (2) HTN (hypertension): Plan: controlled now -avoid thiazides -continue losartan 50 mg daily and lasix Admission and Anticipated Discharge Date Admission Date: October 05, 2022 Subjective still w/ thick hacking but dry cough Review of Systems Review of Systems: All systems reviewed & are unremarkable except as noted in Subjective Physical Exam Constitutional: well developed, well nourished, average body habitus and co operative; no acute distress Eyes: EOM intact bilaterally ENMT: Ears: no external ear abnormality Nose: no external nose abnormality Mouth: + dry oral mucous membranes Neck: no nuchal rigidity Respiratory: normal respiratory effort and + cough Auscultation: + diminished lung sounds and + crackles (diffuse BL fine crackles) Cardiovascular: Rate/Rhythm: regular rate and regular rhythm Extremities: no edema Gastrointestinal (Abdomen): Inspection/Auscultation: normal bowel sounds Percussion/Palpation: abdomen soft; abdomen nontender Musculoskeletal: Extremities: strength 5/5 throughout Skin: no rashes, warm and dry Psychiatric: Orientation: alert and oriented x 3 (improved/brighter affect, speaks more fully/completely/extendedly) Speech: normal rate/rhythm/volume of speech Insight: good insight Judgement: good judgement Results & Data ([facility]) Vital Signs (Past 12 Hours) Vital Signs Temp Pulse Pulse Pulse Resp BP Pulse Ox 10/09/22 12:46 10/09/22 12:14 36.6 C 80 18 136/76 96 10/09/22 08:00 87 10/09/22 09:03 36.9 C 84 85 17 124/73 96 10/09/22 02:24 37.0 C 79 20 149/89 H 94 O2 Del Method 10/09/22 12:46 Room Air 10/09/22 12:14 Room Air 10/09/22 08:00 10/09/22 09:03 Room Air 10/09/22 02:24 Room Air Laboratory Results 10/07/22 05:50 10/09/22 06:53
--- NOTE | 2022-10-09 13:19 | Hospitalist Progress Note ---
Date of Service October 09, 2022 Assessment & Plan (1) Acute hyponatremia: Plan: This is a 77yo M with a PMH of HTN and HLD who presents with intermittent nausea, vomiting and cough was found to have hyponatremia. Acute hyponatremia Acute metabolic encephalopathy secondary to hyponatremia TSH normal Sodium:115>>113>>118>125>129>133 Urine osmolality 421, urine sodium 87 Serum osmolality 246 Hypertonic saline discontinued Appreciate nephrology, traveling phlebotomist help Continue fluid restriction Urea, Lasix as per Nephrology Monitor sodium levels Sodium levels improving Mental status is back to baseline Needs follow-up with nephrology upon discharge Plan to discharge on Lasix 60mg BID , potassium 40mEq BID as per nephrology Hypomagnesemia Replete electrolytes as needed (2) COVID-19: Plan: COVID-19 infection Recently finished Paxlovid course Saturating well on room air Conservative management Antitussives as needed (3) HTN (hypertension): Plan: Hypertensive urgency Continue losartan IV Labetalol PRN BP better (4) HLD (hyperlipidemia): Plan: Continue statin DVT Px: SQ Lovenox Code status: FULL CODE Disposition Home Admission and Anticipated Discharge Date Admission Date: October 05, 2022 Subjective Patient is seen and examined at bedside Still has cough but otherwise feels well No new complaints Discussed with containers sales representative on-call Sodium levels improved to 133 Denies any chest pain, dizziness, nausea, abdominal pain Plan to discharge home today Review of Systems Review of Systems: All systems reviewed & are unremarkable except as noted in Subjective Physical Exam Physical Exam: Physical Exam: Vitals signs as noted above General Appearance:Moderately built and nourished, no apparent distress Head: normocephalic, Atraumatic Eyes: normal inspection, EOMI Neck: supple, Trachea midline Respiratory/Chest: Decreased breath sounds, CTA, No accessory muscle use Cardiovascular: S1, S2, No murmur Abdomen/GI:Soft, Non tender, Bowel sounds present Extremities/Musculoskeletal:normal inspection, Trace edema Neurologic/Psych:AAOX3, grossly no focal neurological deficits Skin: normal color, warm Results & Data Results & Data ([facility]) Vital Signs (Past 12 Hours) Vital Signs Temp Pulse Pulse Pulse Resp BP Pulse Ox 10/09/22 12:46 10/09/22 12:14 36.6 C 80 18 136/76 96 10/09/22 08:00 87 10/09/22 09:03 36.9 C 84 85 17 124/73 96 10/09/22 02:24 37.0 C 79 20 149/89 H 94 O2 Del Method 10/09/22 12:46 Room Air 10/09/22 12:14 Room Air 10/09/22 08:00 10/09/22 09:03 Room Air 10/09/22 02:24 Room Air Laboratory Results [facility] 10/09/22 06:53 Sodium 133 L Potassium 3.7 Chloride 94 L Carbon Dioxide 30 BUN 68 H Creatinine 1.04 Glucose 119 H Calcium 9.2
--- NOTE | 2022-10-09 13:41 | Discharge Summary ---
Date of Service October 09, 2022 Admission HPI Per Admitting Provider This is a 77yo M with a PMH of HTN and HLD who presents with intermittent nausea, vomiting and cough. Was traveling in [place] 10 days ago and developed productive cough, subjective fever chills. He was diagnosed with COVID when he [facility] ago and was prescribed a 5 day course of Paxlovid, which he completed 2 days ago. Cough has persisted but is now dry. Has had nausea and vomiting intermittently since return home. Has had intermittent headaches. Appetite has been poor for past 10 days. Has been drinking approximately 50 oz of water a day. No diarrhea. Patient denies confusion or sei zures. mentions that patient has seemed more confused and foggy the past few days. A&Ox4 during interview. Denies lightheadedness, chest pain, palpitations, abdominal pain, dysuria, diarrhea or constipation. Admission Exam Per Admitting Provider Physical Exam: Vitals signs as noted above General Appearance:Moderately built and nourished, no apparent distress Head: normocephalic, Atraumatic Eyes: normal inspection, EOMI Neck: supple, Trachea midline Respiratory/Chest: Decreased breath sounds, CTA, No accessory muscle use Cardiovascular: S1, S2, No murmur Abdomen/GI:Soft, Non tender, Bowel sounds present Extremities/Musculoskeletal:normal inspection, 1+ B/L LE edema Neurologic/Psych:AAOX3, grossly no focal neurological deficits Skin: normal color, warm Principal Diagnosis Acute hyponatremia Acute metabolic encephalopathy COVID-19 infection Discharge Data Allergies Allergy/AdvReac Type Severity Reaction Status Date / Time No Known Allergies Allergy Unverified 05/25/12 17:55 Consultations 10/05/22 07:21 ED Decision to Admit Stat 10/05/22 08:34 Consult Nephrology Routine 10/05/22 09:39 Consult [employer] Cell Assembly Machine Tender Routine Procedures Performed Laboratory Results WBC 9.35 K/ul (4.8-10.8) 10/07/22 05:50 RBC 4.65 M/uL (4.63-6.08) 10/07/22 05:50 Hgb 13.3 g/dl (14.0-18.0) L 10/07/22 05:50 Hct 37.0 % (40.1-51.0) L 10/07/22 05:50 MCV 79.6 fL (80.0-100.0) L 10/07/22 05:50 MCH 28.6 pg (25.0-34.0) 10/07/22 05:50 MCHC 35.9 g/dL (32.0-36.0) 10/07/22 05:50 RDW Std Deviation 34.5 fL (36.4-46.3) L 10/07/22 05:50 RDW Coeff of Tamir 11.9 % (11.5-14.5) 10/07/22 05:50 Plt Count 310 K/uL (130-400) 10/07/22 05:50 MPV 8.7 fL (9.4-12.4) L 10/07/22 05:50 Immature Gran % (Auto) 0.3 % 10/05/22 05:27 Neut % (Auto) 69.5 % 10/05/22 05:27 Lymph % (Auto) 16.3 % 10/05/22 05:27 [place]ie % (Auto) 12.7 % 10/05/22 05:27 Eos % (Auto) 0.8 % 10/05/22 05:27 Baso % (Auto) 0.4 % 10/05/22 05:27 Neut # (Auto) 5.15 K/uL (1.4-6.5) 10/05/22 05:27 Lymph # (Auto) 1.21 K/uL (1.2-3.4) 10/05/22 05:27 [place]ie # (Auto) 0.94 K/uL (0.24-0.82) H 10/05/22 05:27 Eos # (Auto) 0.06 K/uL (0-0.50) 10/05/22 05:27 Baso # (Auto) 0.03 K/uL (0-0.2) 10/05/22 05:27 Immature Gran # (Auto) 0.02 K/uL (0.00-0.02) 10/05/22 05:27 Sodium 133 mmol/L (136-145) L 10/09/22 06:53 Potassium 3.7 mmol/L (3.5-5.1) 10/09/22 06:53 Chloride 94 mmol/L (98-107) L 10/09/22 06:53 Carbon Dioxide 30 mmol/L (21-32) 10/09/22 06:53 Anion Gap 9 (3-11) 10/09/22 06:53 BUN 68 mg/dl (6-23) H 10/09/22 06:53 Creatinine 1.04 mg/dl (0.6-1.4) 10/09/22 06:53 Est Cr Clr Drug Dosing 67.7 ml/min 10/09/22 06:53 Est GFR ( Amer) 80.5 ml/min 10/09/22 06:53 Est GFR (Non-Af Amer) 69.4 ml/min 10/09/22 06:53 BUN/Creatinine Ratio 65.4 (10-20) H 10/09/22 06:53 Glucose 119 mg/dl (70-99(Fasting)) H 10/09/22 06:53 POC Glucose 110 mg/dl (70-99) H 10/07/22 07:38 Estimat Average Glucose 128 mg/dl 10/05/22 05:27 Hemoglobin A1c 6.1 % (4.5-5.6) H 10/05/22 05:27 Osmolality 246 mOsm/kg (280-300) L 10/05/22 05:27 Calcium 9.2 mg/dl (8.5-10.1) 10/09/22 06:53 Magnesium 2.4 mg/dl (1.7-2.4) 10/08/22 07:22 Total Bilirubin 0.6 mg/dl (0.2-1.0) 10/05/22 05:27 AST 17 U/L (13-39) 10/05/22 05:27 ALT 12 U/L (7-52) 10/05/22 05:27 Alkaline Phosphatase 62 U/L (34-104) 10/05/22 05:27 Troponin I High Sens 10.9 pg/ml (0-20) 10/05/22 05:27 C-Reactive Protein 1.80 mg/dl (0-0.5) H 10/05/22 05:27 Total Protein 8.1 gm/dl (6.0-8.3) 10/05/22 05:27 Albumin 4.5 gm/dl (3.4-5.0) 10/05/22 05:27 Globulin 3.6 gm/dl (2.5-4.0) 10/05/22 05:27 Albumin/Globulin Ratio 1.3 (0.9-2) 10/05/22 05:27 Lipase 21 U/L (11-82) 10/05/22 05:27 Procalcitonin < 0.05 ng/ml (0-0.5) 10/05/22 05:27 TSH 1.882 uIu/ml (0.300-4.500) 10/05/22 05:27 Urine Color Yellow 10/05/22 06:11 Urine Appearance Clear (Clear) 10/05/22 06:11 Urine pH 7.5 (4.5-7.5) 10/05/22 06:11 Ur Specific Addison 1.013 (1.000-1.030) 10/05/22 06:11 Urine Protein 1+ (Negative) H 10/05/22 06:11 Urine Glucose (UA) Negative (Negative) 10/05/22 06:11 Urine Ketones Trace (Negative) H 10/05/22 06:11 Urine Blood Negative (Negative) 10/05/22 06:11 Urine Nitrite Negative (Negative) 10/05/22 06:11 Urine Bilirubin Negative (Negative) 10/05/22 06:11 Urine Urobilinogen Negative (Negative) 10/05/22 06:11 Ur Leukocyte Esterase Negative (Negative) 10/05/22 06:11 Urine WBC (Auto) 1-5 /hpf (0-5) 10/05/22 06:11 Urine RBC (Auto) 0-4 /hpf (0-4) 10/05/22 06:11 U Hyaline Cast (Auto) 0 /lpf (0-5) 10/05/22 06:11 U Epithel Cells (Auto) 10-20 /lpf (0-5) H 10/05/22 06:11 Urine Bacteria (Auto) Negative (Negative) 10/05/22 06:11 Urine Osmolality 421 mOsm/kg (500-800) L 10/05/22 06:11 Ur Random Sodium 87 mmol/L 10/05/22 06:11 Nasal Screen MRSA (PCR) Negative (Negative) 10/05/22 12:00 Hepatitis C Ab (EIA) NON-REACTIVE (NON-REACTIVE) 10/05/22 05:27 Hep C Ab Signal/Cutoff <0.02 (<1.00) 10/05/22 05:27 SARS-CoV-2, RNA, NAAT POSITIVE (NEGATIVE) A* 10/05/22 06:55 Impressions Chest X-Ray 10/05/22 05:13 XR chest 1V portable HISTORY: 77 years-old Male Chest pain, nonspecific acute chest pain COMPARISON: None TECHNIQUE: AP view of the chest FINDINGS: Study is limited secondary to positioning. The cardiac silhouette is upper limits of normal in size. Mild interstitial coarsening of the lung bases. No pneumothorax, pleural effusion, airspace consolidation or overt pulmonary edema. Mild left shoulder rotator cuff calcific tendinosis. Degenerative changes of the shoulders and spine. IMPRESSION: Mild nonspecific interstitial coarsening of the lung bases. Findings may represent atelectasis versus a mild nonspecific pneumonitis ACT 112: Negative or not required by law. The above report was generated using voice recognition software. It may contain grammatical, syntax or spelling errors. Electronically signed by: Rajesh Ragland M.D. 10/05/2022 6:[address] 10/05/22 05:13 CT head/brain wo con CLINICAL HISTORY: 77 years-old Male with FINCH. Acute headache TECHNIQUE: Multiple axial CT images of the head were obtained without contrast. A dose lowering technique was utilized adhering to the principles of ALARA. CT DOSE: 704.87 mGy.cm COMPARISON: None. FINDINGS: No acute intracranial hemorrhage, midline shift, intracranial mass, hydrocephalus, territorial ischemia or abnormal extra-axial collection. Involutional changes with ventriculomegaly, likely on an ex vacuo basis. There is asymmetric dilation of the posterior horn left lateral ventricle of unknown chronicity. The temporal horns are symmetric and decompressed. White matter hypodensities are suggestive of chronic microvascular ischemic disease. Cerebral vascular calcifications. The calvarium is intact. Mild mucosal thickening of the paranasal sinuses. The mastoid air cells are generally clear. Unremarkable soft tissues. Prior bilateral lens repair. IMPRESSION: No acute intracranial abnormality. ACT 112: Negative or not required by law. The above report was generated using voice recognition software. It may contain grammatical, syntax or spelling errors. Electronically signed by: Rajesh Ragland M.D. 10/05/2022 6:56 AM Ordered Studies 10/05/22 05:13 CT head/brain wo con Urgent Hospital Course (1) Acute hyponatremia: This is a 77yo M with a PMH of HTN and HLD who presents with intermittent nausea, vomiting and cough was found to have hyponatremia. Acute hyponatremia Acute metabolic encephalopathy secondary to hyponatremia TSH normal Sodium:115>>113>>118>125>129>133 Urine osmolality 421, urine sodium 87 Serum osmolality 246 Hypertonic saline discontinued Appreciate nephrology, lab technologist help Continue fluid restriction Urea, Lasix as per Nephrology Monitor sodium levels Sodium levels improving Mental status is back to baseline Needs follow-up with nephrology upon discharge Plan to discharge on Lasix 60mg BID , potassium 40mEq BID as per nephrology Hypomagnesemia Replete electrolytes as needed (2) COVID-19: COVID-19 infection Recently finished Paxlovid course Saturating well on room air Conservative management Antitussives as needed (3) HTN (hypertension): Hypertensive urgency Continue losartan IV Labetalol PRN BP better (4) HLD (hyperlipidemia): Continue statin DVT Px: SQ Lovenox Code status: FULL CODE Disposition Home Total Time Total Time Spent Total Time Spent (In Minutes): 55 minutes Discharge Plan Discharge Items Patient Disposition: Home - Self-Care Reason For Visit: HYPONATREMIA, COVID Discharge Diagnosis: Acute hyponatremia Acute metabolic encephalopathy COVID-19 infection Activity: Per Instructions section Exercise/Sports: Wait until after follow-up appointment Non-emergency contact: Primary Care Provider and Sharepoint Admin Call non-emergency contact if: you have any medication questions, your symptoms worsen, your pain is concerning for you and you have a fever Follow-up/Referrals: Davon Atwood MD [Primary Care Provider] - (Date & Time 10/16/2022 2:00 PM Provider Rosaura Peterson MD Department General Internal Medicine [facility] ) Diet: Heart Healthy Fluids: 1500ml (6 cups) Addtl Attending Provider Instructions: Follow-up with your primary care physician on 10/16/2022 2:00 PM Follow-up with your assistant film editor Dr.Stacy Woods in 2 weeks as advised. --Get Blood test (basic metabolic panel, serum osmolality, urine osmolality, random urine sodium Mondays and ) for 4 weeks as recommended by your assistant film editor. Further recommendations of medication adjustment based on your results. -- Taking Lasix 60 mg twice a day and potassium 40 mEq twice a day as recommended by your assistant film editor. Seek immediate medical attention if your symptoms reoccur or worsen Please take all medications as instructed on discharge list below. Please call if you have any questions or problems. You can reach a [facility] hospitalist on duty at [facility] 24 hours a day by calling [phone] Home Isolation COVID-19 Instructions The following information about Home Isolation is from the CDC Website: https://www.cdc.gov/coronavirus/2019-ncov/hcp/koycwjdj-zfddofh-prsnuk.html Stay home except to get medical care People who are mildly ill with COVID-19 are able to isolate at home during their illness. You should restrict activities outside your home, except for getting medical care. Do not go to work, school, or public areas. Avoid using public transportation, ride-sharing, or taxis. Separate yourself from other people and animals in your home People: As much as possible, you should stay in a specific room and away from other people in your home. Also, you should use a separate bathroom, if available. Animals: You should restrict contact with pets and other animals while you are sick with COVID-19, just like you would around other people. Although there have not been reports of pets or other animals becoming sick with COVID-19, it is still recommended that people sick with COVID-19 limit contact with animals until more information is known about the virus. When possible, have another member of your household care for your animals while you are sick. If you are sick with COVID-19, avoid contact with your pet, including petting, snuggling, being kissed or licked, and sharing food. If you must care for your pet or be around animals while you are sick, wash your hands before and after you interact with pets and wear a face mask. Call ahead before visiting your doctor If you have a medical appointment, call the healthcare provider and tell them that you have or may have COVID-19. This will help the healthcare providers office take steps to keep other people from getting infected or exposed. Wear a face mask You should wear a face mask when you are around other people (e.g., sharing a room or vehicle) or pets and before you enter a healthcare providers office. If you are not able to wear a face mask (for example, because it causes trouble breathing), then people who live with you should not stay in the same room with you, or they should wear a face mask if they enter your room. Cover your coughs and sneezes Cover your mouth and nose with a tissue when you cough or sneeze. Throw used tissues in a lined trash can. Immediately wash your hands with soap and water for at least 20 seconds or, if soap and water are not available, clean your hands with an alcohol-based hand leather leveler that contains at least 60% alcohol. Clean your hands often Wash your hands often with soap and water for at least 20 seconds, especially after blowing your nose, coughing, or sneezing; going to the bathroom; and before eating or preparing food. If soap and water are not readily available, use an alcohol-based hand leather leveler with at least 60% alcohol, covering all surfaces of your hands and rubbing them together until they feel dry. Soap and water are the best option if hands are visibly dirty. Avoid touching your eyes, nose, and mouth with unwashed hands. Avoid sharing personal household items You should not share dishes, drinking glasses, cups, eating utensils, towels, or bedding with other people or pets in your home. After using these items, they should be washed thoroughly with soap and water. Clean all high-touch surfaces everyday High touch surfaces include counters, tabletops, doorknobs, bathroom fixtures, toilets, phones, keyboards, tablets, and bedside tables. Also, clean any surfaces that may have blood, stool, or body fluids on them. Use a household cleaning spray or wipe, according to the label instructions. Labels contain instructions for safe and effective use of the cleaning product including precautions you should take when applying the product, such as wearing gloves and making sure you have good ventilation during use of the product. Monitor your symptoms Seek prompt medical attention if your illness is worsening (e.g., difficulty breathing).Beforeseeking care, call your healthcare provider and tell them that you have, or are being evaluated for, COVID-19. Put on a face mask before you enter the facility. These steps will help the healthcare providers office to keep other people in the office or waiting room from getting infected or exposed. Ask your healthcare provider to call the local or state health department. Persons who are placed under active monitoring or facilitated self- monitoring should follow instructions provided by their local health department or occupational health professionals, as appropriate. When working with your local health department check their available hours. If you have a medical emergency and need to call 911, notify the dispatch personnel that you have, or are being evaluated for COVID-19. If possible, put on a face mask before emergency medical services arrive. Discontinuing home isolation Patients with confirmed COVID-19 should remain under home isolation precautions until the risk of secondary transmission to others is thought to be low. The decision to discontinue home isolation precautions should be made on a [id number] basis, in consultation with healthcare providers and state and local health departments. Coronavirus disease 2019 (COVID-19) is a virus that causes a respiratory illness. It is caused by a coronavirus called 2019 novel coronavirus (2019- nCoV). There are many types of coronavirus. Coronaviruses are a very common cause of bronchitis. They may sometimes cause lung infection(pneumonia). Symptoms can range from mild to severe respiratory illness. These viruses are also foundin some animals. COVID-19 was first found in people in [facility], in late 2019. In 2020, several cases of COVID-19 have been confirmed in the [place] Public health officials are working to find the source. How the virus spreads is not yet fully known. It may be spread through droplets of fluid that a person coughs or sneezes into the air. It may be spread if you touch a surface with virus on it, such as a handle or object, and then touch your mouth. What are the symptoms of COVID-19? Some people have no symptoms or mild symptoms. Symptoms may appear 2 to 14 days after contact with the virus. Symptoms can include: Fever Coughing Trouble breathing What are possible complications from COVID-19? In many cases, this virus can cause infection (pneumonia) in both lungs. In some cases, this can cause . How is COVID-19 diagnosed? Your healthcare provider will ask about your symptoms. He or she will also ask about your recent travel and contact with sick people. Testing for the virus is only done through the [facility]. If yourhealthcare provider thinks you may have COVID- 19, he or she will work with your local health department and the CDC on testing. Follow all instructions from your healthcare provider. COVID-19 is diagnosed by: Nasal and throat swab. A cotton-tipped swab is wiped inside your nose or throat. This is done to check for viruses in your nasal mucus. Sputum culture. A small sample of mucus coughed from your lungs (sputum) is collected if you have a cough. It is checked for the virus. How is COVID-19 treated? There is currently no medicine to treat the virus. Treatment is done to help your body while it fights the virus. This is known as supportive care. Supportive care may include: Pain medicine. These include acetaminophen and ibuprofen. They are used to help ease pain and reduce fever. Bed rest. This helps your body fight the illness. For severe illness, you may need to stay in the hospital. Care during severe illness may include: IV (intravenous) fluids.These are given through a vein to help keep your body hydrated. Oxygen. Supplemental oxygen or ventilation with a breathing machine (ventilator) may be given. This is done to keep enough oxygen in your body. Are you at risk for COVID-19? If youve been to a place where people have been sick with this virus, you are at risk for infection. You are at risk if you: Recently traveled to an affected area Had contact with a sick person who recently traveled to this area Had contact with a person who was diagnosed with COVID-19 How can COVID-19 be prevented? There is no vaccine yet. The best prevention is to not have contact with the virus. The CDC advises that people should not travel to areas where there are COVID-19 outbreaks right now for any reason that is not urgent. To help prevent spreading the infection, wash your hands often, or use an alcohol-basedhand leather leveler. If you are in an area with COVID-19: Wash your hands often. Or use an alcohol-based hand leather leveler often. Only touch your eyes, nose, or mouth with clean hands. Dont have contact with people who are sick. Follow local instructions about being in public. For example, you may be told to not use public transport for a period of time. Stay away from markets that have live or animals. Wash your hands after touching any animals. Don't touch animals that may be sick. Dont share eating or drinking tools with sick people. Dont kiss someone who is sick. Clean surfaces often with disinfectant. If you were in an area with COVID-19 in the last 14 days: Call your healthcare provider. He or she can talk with local health staff to see what action may be needed. Follow all instructions from your provider. Take your temperature every morning and evening for at least 14 days. This is to check for fever. Keep a record of the readings. Keep watch for symptoms of the virus. Tell your provider right away if you have symptoms. If you were in an area with COVID-19 and have a fever or other symptoms: Dont panic. Keep in mind that other illnesses can cause similar symptoms. Stay away from work, school, and public places. Limit physical contact with family members. Don't kiss anyone or share eating or drinking utensils. Clean surfaces you touch with disinfectant. This is to help prevent the virus from spreading. Call your healthcare provider. Explain that you have been exposed to COVID-19 and have symptoms. Do this before going to any hospital. Wait for instructions. Keep in mind that healthcare staff may wear protective equipment such as masks, gowns, gloves, and eye protection. You may be put in a separate room. This is to prevent the possible virus from spreading. Tell the healthcare staff about recent travel. This includes local travel on public transport. Staff may need to find other people you have been in contact with. Follow all instructions the healthcare staff give you. If you have been diagnosed with COVID-19 Follow all instructions from your healthcare provider. Dont leave your home, except to get medical care. Call your healthcare providers office before going. They can prepare and give you instructions. This will help prevent the virus from spreading. Dont go to work, school, or public areas. Dont use public transport or taxis. Stay away from other people in your home. Have them wear face masks around you. Dont share household items or food. Wear a face mask if you can. This includes at home or in a medical facility. Cover your face with a tissue when you cough or sneeze. Throw the tissue away. Wash your hands. Wash your hands often. Caregivers should: Follow all instructions from healthcare staff. Wear a face mask and protective clothing as advised. Wash hands often. Keep track of the sick persons symptoms. Clean surfaces, fabrics, and laundry thoroughly. Keep other people away from the sick person. When to call your healthcare provider Call your healthcare provider: If youve recently traveled and have symptoms If you have been diagnosed with COVID-19 and your symptoms are worse To learn more To find out more about COVID-19, visit the CDC website at www.cdc.gov/coronavirus/2019-ncov/index.html. [employer]. [address] [place] [address]. All rights reserved. This information is not intended as a substitute for professional medical care. Always follow your healthcare professional's instructions. This information has been adapted from [employer] Pending Studies at Discharge: No Stand-Alone Forms: My [facility] [employer], Smoking Cessation Medications and DC Order Prescriptions: New potassium chloride 20 mEq Tablet,Er Particles/Crystals 40 meq PO BID 21 Days Qty: 84 0RF furosemide [Lasix] 20 mg tablet 60 mg PO BID 21 Days Qty: 126 0RF docusate sodium [Colace] 100 mg capsule 100 mg PO BID PRN (Reason: constipation) Qty: 30 0RF Continued losartan 50 mg tablet 50 mg PO DAILY atorvastatin 40 mg tablet 40 mg PO DAILY Discharge Orders: Discharge Order (Routine); Ordered 10/09/22 Ordered By: Papo Carreon/Other Patient Handouts: Prediabetes, 5 Steps for Eating Healthier Admission Data Admit Date/Time: 10/05/22 09:23 Attending Provider: Papo Carrion Admit Provider: Papo Carrion Primary Care Provider: Davon Atwood Other Providers: Papo Carrion ; Renee Woods ; Holden Pedersen
== END 2022-10-09 15:34 | disposition home or self-care (01) | DRG 177 ==
LOC: ED 04:57 → 1E 09:23 → 2S 10-07 15:07